=== PATIENT | female | born 1980 | race Caucasian/White ===

== ENCOUNTER → 2018-07-15 18:25 | Outpatient (CLI) | payer OTHER, SELFPAY ==
[2018-07-16 00:55] LABS: Urine N gonorrhoeae NOT DETECTED
[2018-07-16 00:56] LABS: Urine Chlamydia NOT DETECTED
== END ==
PROVIDERS: Visit Provider Physician Assistant
DX: N39.0 Urinary tract infection, site not specified (principal); R30.0 Dysuria
CPT/HCPCS: 87077; 87086; 87491; 87591

== ENCOUNTER 2018-11-02 23:57 | Emergency (ER) | payer OTHER, SELFPAY ==
[2018-11-03 00:03] VITALS: BP 124/74; PULSE 90; RESP 16; TEMP 36.8; O2SAT 100; BMI 25.1
--- NOTE | 2018-11-03 00:04 | ED.ABDPAIN ---
HPI - Abdominal Pain General Chief Complaint: Abdominal Pain Stated Complaint: LOWER ABDOMINAL PAIN Time Seen by Provider: 11/03/18 00:04 Source: patient Mode of arrival: ambulatory Limitations: no limitations History of Present Illness HPI narrative: Patient is a 38-year-old female here for evaluation of right-sided abdominal pain. Patient states that the symptoms were fairly sudden onset within the past couple hours. She denies any urinary symptoms or vaginal bleeding. No history of kidney stones. No vomiting. No prior abdominal surgeries. She states she is irregular on her menstrual cycle is supposed to start her menses next week. Has not tried anything for the symptoms prior to arrival. Nothing seems to make his symptoms better or worse. Related Data Home Medications Medication Instructions Recorded Confirmed cholecalciferol (vitamin D3) 5,000 unit PO QDAY #0 08/01/16 07/15/18 [Vitamin D3] dextroamphetamine-amphetamine 30 mg PO QDAY #0 08/01/16 07/15/18 [Adderall XR] omega 7-qyu-ldc-fish oil [Fish Oil] 1,000 mg PO #0 08/01/16 07/15/18 sertraline [Zoloft] 50 mg PO QDAY #0 08/01/16 07/15/18 cyanocobalamin (vitamin B-12) 5,000 mcg SUBLINGUAL QDAY #0 12/11/16 07/15/18 [Vitamin B-12] spironolactone [Aldactone] #0 08/01/17 07/15/18 Previous Rx's Medication Instructions Recorded mupirocin 2 % TOPICAL BIDP PRN #22 gm 08/01/17 gabapentin 300 mg capsule 600 mg PO TID #180 cap 10/19/17 Allergies Allergy/AdvReac Type Severity Reaction Status Date / Time mold [MOLD] Allergy Unknown Verified 07/15/18 17:59 DUST MITES Allergy Unknown Uncoded 07/15/18 17:59 POLLEN Allergy Unknown Uncoded 07/15/18 17:59 Review of Systems Constitutional Denies fever(s) and Denies headache(s) ENT Ears, Nose, Mouth, and Throat: Denies headache(s) Cardiovascular Denies chest pain and Denies dyspnea Respiratory Denies dyspnea Gastrointestinal Gastrointestinal: Reports abdominal pain and Denies change in stool character Genitourinary Denies dysuria Musculoskeletal Denies back pain, Denies myalgias and Denies arthralgias Integumentary/Breasts Denies rash Neurologic Denies headache(s) Hematologic/Lymphatic Denies easy bleeding and Denies easy bruising [facility] Medical History Patient denies medical problems (Acute) Surgical History No pertinent past surgical history (Acute) Social History Smoking Status: Former smoker Social History Smoking Status: Former smoker Exam Initial Vital Signs Initial Vital Signs: Vital Signs Temperature 98.2 F 11/03/18 00:03 Pulse Rate 90 11/03/18 00:03 Respiratory Rate 16 11/03/18 00:03 Blood Pressure 124/74 11/03/18 00:03 Pulse Oximetry 100 11/03/18 00:03 Const General: cooperative, comfortable, well developed and well groomed Orientation: alert and awake Resp Effort & Inspection: normal respiratory effort Auscultation: clear to auscultation bilaterally Cardio Rate: regular rate Rhythm: regular rhythm GI Inspection: non-distended Palpation: soft, No firm and tender (Right mid abdomen. No right lower quadrant or right upper quadrant tendern) Back/Spine/Pelvis Back: No CVA tenderness Neuro General: alert, awake and oriented x3 Cognition: normal cognition Speech: speech normal Extrem General: normal to inspection and capillary refill normal Course Orders Ordered: ED Orders 11/03/18 00:06 Urine Culture Stat Urine Microscopic Stat 11/03/18 00:10 CT abdomen pelvis w con Stat 11/03/18 00:15 Complete Blood Count AUTO DIFF Stat Comprehensive Metabolic Panel Stat Lipase Stat Discontinued Medications Hydrocodone Bitart/Acetaminophen (Vicodin Prepack) 1 bottle MISC SEEINSTR ONE Stop: 11/03/18 01:58 Sodium Chloride (Normal Saline 0.9%) 1,000 mls @ 1,000 mls/hr IV BOLUS ONE Stop: 11/03/18 01:08 Last Admin: 11/03/18 00:33 Dose: 1,000 mls/hr Morphine Sulfate (Morphine) 2 mg IV NOW ONE Stop: 11/03/18 01:27 Last Admin: 11/03/18 01:29 Dose: 2 mg Ondansetron HCl (Zofran) 4 mg IV NOW ONE Stop: 11/03/18 01:27 Last Admin: 11/03/18 01:29 Dose: 4 mg Ondansetron HCl (Zofran Odt Prepack) 1 bottle MISC SEEINSTR ONE Stop: 11/03/18 01:58 Vital Signs - 8 hr 11/03/18 00:03 11/03/18 01:16 11/03/18 01:33 Temperature 98.2 F Pulse Rate 90 65 67 Respiratory Rate 16 Blood Pressure 124/74 Blood Pressure [Left Arm] 104/67 110/65 Pulse Oximetry 100 100 100 MDM - Abdominal Pain Lab Data Attestation: I reviewed the patient's lab results. Result diagrams: 11/03/18 00:15 11/03/18 00:15 Lab Results 11/03/18 11/03/18 11/03/18 Range/Units 00:06 00:15 00:15 WBC 8.1 (4.5-11.0) X10^3/uL RBC 4.72 (4.0-5.2) X10^6/uL Hgb 14.8 (12.0-16.0) g/dL Hct 42.2 (36-46) % MCV 89.4 (80-100) fL MCH 31.4 (26-34) PG MCHC 35.1 (30-36) % RDW 12.8 (11.6-14.8) % Plt Count 263 (150-400) X10^3/uL Neut % (Auto) 52.1 (50-75) % Lymph % (Auto) 39.1 (25-40) % [place] % (Auto) 6.3 (3-14) % Eos % (Auto) 1.9 L (2-4) % Baso % (Auto) 0.6 (0-2) % Neut # (Auto) 4200 (5601-8203) /uL Lymph # (Auto) 3200 (1049-0602) /uL [place] # (Auto) 500 (0-900) /uL Eos # (Auto) 200 (0-450) /uL Baso # (Auto) 100 (0-100) /uL Sodium 138 (137-145) mmol/L Potassium 3.8 (3.4-5.1) mmol/L Chloride 102 (98-107) mmol/L Carbon Dioxide 25 (22-32) mmol/L BUN 11 (7-17) mg/dL Creatinine 0.60 (0.52-1.04) mg/dL Estimated GFR > 60.0 (>60) mL/min BUN/Creatinine Ratio 18.3 (6-22) Glucose 106 H (70-100) mg/dL Calcium 9.5 (8.4-10.2) mg/dL Total Bilirubin 0.5 (0.2-1.3) mg/dL AST 22 (14-36) IU/L ALT 23 (9-52) IU/L Alkaline Phosphatase 69 (38-126) U/L Total Protein 7.5 (6.3-8.2) g/dL Albumin 4.5 (3.5-5.0) g/dL Globulin 3.0 (1.7-4.1) g/dL Albumin/Globulin Ratio 1.5 (1.0-2.8) Lipase (23-300) U/L Urine RBC None seen (0-5/HPF) Urine WBC 0-1/hpf (0-5/HPF) Ur Squamous Epith Cells 1-5 /hpf (0-5/HPF) Urine Bacteria Few (2-10) H (None) Ur Culture Indicated? Specimen cultured 11/03/18 Range/Units 00:15 WBC (4.5-11.0) X10^3/uL RBC (4.0-5.2) X10^6/uL Hgb (12.0-16.0) g/dL Hct (36-46) % MCV (80-100) fL MCH (26-34) PG MCHC (30-36) % RDW (11.6-14.8) % Plt Count (150-400) X10^3/uL Neut % (Auto) (50-75) % Lymph % (Auto) (25-40) % [place] % (Auto) (3-14) % Eos % (Auto) (2-4) % Baso % (Auto) (0-2) % Neut # (Auto) (4160-8723) /uL Lymph # (Auto) (6077-1157) /uL [place] # (Auto) (0-900) /uL Eos # (Auto) (0-450) /uL Baso # (Auto) (0-100) /uL Sodium (137-145) mmol/L Potassium (3.4-5.1) mmol/L Chloride (98-107) mmol/L Carbon Dioxide (22-32) mmol/L BUN (7-17) mg/dL Creatinine (0.52-1.04) mg/dL Estimated GFR (>60) mL/min BUN/Creatinine Ratio (6-22) Glucose (70-100) mg/dL Calcium (8.4-10.2) mg/dL Total Bilirubin (0.2-1.3) mg/dL AST (14-36) IU/L ALT (9-52) IU/L Alkaline Phosphatase (38-126) U/L Total Protein (6.3-8.2) g/dL Albumin (3.5-5.0) g/dL Globulin (1.7-4.1) g/dL Albumin/Globulin Ratio (1.0-2.8) Lipase 62 (23-300) U/L Urine RBC (0-5/HPF) Urine WBC (0-5/HPF) Ur Squamous Epith Cells (0-5/HPF) Urine Bacteria (None) Ur Culture Indicated? Point of care testing: Point of Care Testing Test Results Negative Urine Dip Bedside Urine Glucose Negative Bedside Urine Bilirubin - Negative Bedside Urine Ketone - Negative Urine Specific Pimento 1.010 Bedside Urine Occult Blood - Negative Bedside Urine pH 5.0 Bedside Urine Protein - Negative Bedside Urine Urobilinogen - Negative Bedside Urine Nitrite - Negative Bedside Urine Leukocytes +/- [address] scan - abdomen: Radiologist's impression: No diverticulitis or bowel obstruction. Structure likely representing the appendix appears unremarkable. Collapsing follicle of the right ovary. Liver and gallbladder unremarkable. [facility] Narrative Medical decision making narrative: Patient is a relatively benign abdominal exam. The CT scan is negative for appendicitis or kidney stones or diverticulitis or bowel obstruction. Patient has normal LFTs and normal lipase and a CT scan specifically mentions the gallbladder has been unremarkable. Patient also does not have any right upper quadrant tenderness and does not have a positive Tom sign. Her symptoms are right mid abdomen. The CT scan does show what appears to be a collapsing follicle on the right ovary. This could potentially be causing her symptoms. I did discuss all this with the patient. No indication for antibiotics. Will hold on right upper quadrant ultrasound. No indication for surgical intervention. Will send home with prepack of pain medication and nausea medication. Patient was given return precautions and follow-up instructions. She expressed understanding and agreement with plan. Discharge Plan Departure Patient Disposition: Home Clinical Impression: Abdominal pain Qualifiers: Abdominal location: unspecified location Qualified Code(s): R10.9 - Unspecified abdominal pain Instructions: DI for Abdominal Pain-Adult Activity Restrictions/Additional Instructions: Use the medication you were given here during this visit as needed and as directed. Contact your primary care doctor to schedule your 1st visit with him and also for a follow-up. Return to the emergency department for any new or worsening symptoms Prescriptions: No Action cholecalciferol (vitamin D3) [Vitamin D3] 2,000 UNIT tablet 5,000 unit PO QDAY Qty: 0 RF: 0 omega 8-ujo-lre-fish oil [Fish Oil] 1,000 MG capsule 1,000 mg PO Qty: 0 RF: 0 dextroamphetamine-amphetamine [Adderall XR] 30 MG capsule,extended release 24hr 30 mg PO QDAY Qty: 0 RF: 0 sertraline [Zoloft] 50 MG tablet 50 mg PO QDAY Qty: 0 RF: 0 cyanocobalamin (vitamin B-12) [Vitamin B-12] 5,000 MCG tablet, sublingual 5,000 mcg Sublingual QDAY Qty: 0 RF: 0 spironolactone [Aldactone] 25 mg Tablet Qty: 0 RF: 0 mupirocin 2 % ointment 2 % Topical BIDP PRNQty: 22 RF: 0 gabapentin [Neurontin] 300 mg capsule 600 mg PO TID Qty: 180 RF: 11
--- NOTE | 2018-11-03 00:10 | DI.CT.S_ITS ---
PROCEDURE: CT ABDOMEN PELVIS W CON INDICATIONS: Right lower quadrant abdominal pain TECHNIQUE: After the administration of oral and intravenous contrast, 5 mm thick sections acquired from the diaphragms to the symphysis. 5 mm thick coronal and sagittal reformats were performed. For radiation dose reduction, the following was used: automated exposure control, adjustment of mA and/or kV according to patient size. COMPARISON: [facility], CT, ABDOMEN/PELVIS WITH CONTRAST, 06/25/2012, 19:15. FINDINGS: Image quality: Excellent. ABDOMEN: Lung bases: Lung bases are clear. Heart size is normal. Solid organs: Liver is normal in size and enhancement. Gallbladder is contracted, but appears to be within normal limits. Biliary system is non-dilated. Pancreas enhances normally. Spleen is normal in size and enhancement. No adrenal nodules. Kidneys are normal in size and enhancement, without hydronephrosis. Peritoneum and bowel: Stomach, small bowel, and colon loops are normal in caliber and wall thickness. Moderate residual stool is seen within the colon. No appendix is not clearly identified. However, what is felt to represent appendix is within normal limits. No free fluid or air. Nodes and vessels: No retroperitoneal or mesenteric adenopathy. Aorta and inferior vena cava are normal in caliber. Bones: No acute fractures or suspicious osseous lesions are present. There mild degenerative changes of the lower lumbar spine. PELVIS: Genitourinary: Bladder wall thickness is normal. The uterus is enlarged, but is not well characterized. There may be uterine fibroids. A collapsing/enhancing right ovarian cyst appears to be present. Otherwise, the ovaries are unremarkable and not significantly enlarged. Miscellaneous: No inguinal hernias or adenopathy. The no free fluid or loculated fluid collection is present. There is no free air. Bones: No suspicious bony lesions. No acute pelvic fractures are evident. IMPRESSION: 1. No definite acute abnormality of the abdomen or pelvis. 2. Probable collapsing right ovarian cyst. 3. Colonic constipation is suspected. And there is no bowel obstruction. 4. Probable normal appendix. 5. Enlarged uterus may be related to multiple uterine fibroids. Note: The preliminary [facility] report and the final report are concordant. Dictated by: Pravin Dickerson M.D. on 11/03/2018 at 7:34 Approved by: Pravin Dickerson M.D. on 11/03/2018 at 7:39
[2018-11-03 00:17] LABS: RBC Urine None Seen (0-5/HPF)
[2018-11-03 00:23] LABS: Squamous Epithelial Cell Urine 1-5 /HPF (0-5/HPF); WBC Urine 0-1/HPF (0-5/HPF)
[2018-11-03 00:24] LABS: Bacteria Urine Few (2-10); Culture Indicated Urine Specimen Cultured
[2018-11-03 00:32] LABS: Add Manual Diff / Slide Review NO; Basophils Absolute Auto 100 /uL (0-100); Basophils Percent Auto 0.6 % (0-2); Eosinophils Absolute Auto 200 /uL (0-450); Eosinophils Percent Auto 1.9 % (2-4); Hematocrit 42.2 % (36-46); Hemoglobin 14.8 g/dL (12.0-16.0); Lymphocytes Absolute Auto 3200 /uL (1100-4500); Lymphocytes Percent Auto 39.1 % (25-40); Mean Corpuscular HGB Conc 35.1 % (30-36); Mean Corpuscular Hemoglobin 31.4 PG (26-34); Mean Corpuscular Volume 89.4 fL (80-100); Monocytes Absolute Auto 500 /uL (0-900); Monocytes Percent Auto 6.3 % (3-14); Neutrophils Absolute Auto 4200 /uL (1500-7000); Neutrophils Percent Auto 52.1 % (50-75); Platelet Count 263 X10^3/uL (150-400); Red Blood Cell Count 4.72 X10^6/uL (4.0-5.2); Red Cell Distribution Width 12.8 % (11.6-14.8); White Blood Cell Count 8.1 X10^3/uL (4.5-11.0)
[2018-11-03] MEDS: SODIUM CHLORIDE 0.9% 1,000 ML 1000 ML IV (00:33)
[2018-11-03 00:39] LABS: Lipase 62 U/L (23-300)
[2018-11-03 00:41] LABS: Alanine Aminotransferase 23 IU/L (9-52); Albumin 4.5 g/dL (3.5-5.0); Albumin Globulin Ratio 1.5 (1.0-2.8); Alkaline Phosphatase 69 U/L (38-126); Aspartate Aminotransferase 22 IU/L (14-36); BUN Creatinine Ratio 18.3 (6-22); Bilirubin Total 0.5 mg/dL (0.2-1.3); Blood Urea Nitrogen 11 mg/dL (7-17); Calcium 9.5 mg/dL (8.4-10.2); Carbon Dioxide 25 mmol/L (22-32); Chloride 102 mmol/L (98-107); Estimated Glomerular Filt Rate > 60.0 mL/min (>60); Glucose 106 mg/dL (70-100); HEMOLYSIS 17 (0-50); Potassium 3.8 mmol/L (3.4-5.1); Sodium 138 mmol/L (137-145); Total Protein 7.5 g/dL (6.3-8.2)
[2018-11-03 01:16] VITALS: BP 104/67; PULSE 65; O2SAT 100
[2018-11-03] MEDS: MORPHINE 2 MG/ML INJ IV (01:29)
[2018-11-03] MEDS: ONDANSETRON 4 MG/2 ML INJ IV (01:29)
[2018-11-03 01:33] VITALS: BP 110/65; PULSE 67; O2SAT 100
[2018-11-03 02:27] VITALS: BP 116/66; PULSE 61; RESP 14; O2SAT 100
[2018-11-03] MEDS: HYDROCODONE/ACET 5/325 PREPACK 1 BOTTLE MISC (02:28)
[2018-11-03] MEDS: ONDANSETRON 4 MG ODT PREPACK 1 BOTTLE MISC (02:28)
[2018-11-03 02:40] VITALS: TEMP 36.5
== END 2018-11-03 02:40 | disposition home or self-care (01) ==
PROVIDERS: Emergency Provider Emergency Medicine
DX: R10.31 Right lower quadrant pain (principal)
CPT/HCPCS: 36591; 74177; 80053; 81003; 81015; 81025; 83690; 85025; 87077; 87086; 87186; 96361; 96374; 96375; 99283; 99285; J2270; J2405; Q9967

== ENCOUNTER 2019-01-01 22:52 | Emergency (ER) | payer OTHER, SELFPAY ==
[2019-01-01 22:56] VITALS: BP 119/76; PULSE 60; RESP 14; TEMP 36.9; O2SAT 97
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
[2019-01-02 00:02] VITALS: BP 112/60; PULSE 62; O2SAT 100
== END 2019-01-02 00:02 | disposition home or self-care (01) ==
PROVIDERS: Emergency Provider Emergency Medicine; PCP Family Medicine
DX: R07.81 Pleurodynia (principal); S40.011A Contusion of right shoulder, initial encounter; V58.6XXA Passenger in pick-up truck or van injured in noncollision transport accident in traffic accident, initial encounter
CPT/HCPCS: 71101; 99281; 99283

== ENCOUNTER 2019-07-20 12:38 | Emergency (ER) | payer OTHER, MEDICAID, SELFPAY ==
[2019-07-20 12:58] VITALS: BP 128/83; PULSE 92; RESP 18; TEMP 37.1; O2SAT 97
[2019-07-20] MEDS: IBUPROFEN 400 MG TABLET PO (13:11)
[2019-07-20] MEDS: PROPRANOLOL 10 MG TABLET 20 MG PO (13:48)
--- NOTE | 2019-07-20 13:54 | ED.ANXIETY ---
HPI - Anxiety General Chief Complaint: Anxiety Stated Complaint: PANIC ATTACK REALLY BAD Time Seen by Provider: 07/20/19 13:48 Source: patient Mode of arrival: Ambulatory Limitations: no limitations History of Present Illness HPI narrative: 39-year-old female. History of anxiety depression and ADHD. Sees a mental health provider. Is on medications for these diagnoses. Here for evaluation of a panic attack. Has been going on for the past 2 days. States that 1 month ago her mother . Her boyfriend of 1 year also recently ended the relationship. She denies any alcohol or drugs. States she has been crying and lying on the floor for the past 2 days. She states that she just can't take it anymore. She did not take any of her medications today. She also has abdominal pain. She has had chronic abdominal pain. She states that today's abdominal pain is like prior abdominal issues. She is having some diarrhea although she states that she does have some irritable bowel syndrome type symptoms. She has never been worked up before by GI. Related Data Home Medications Medication Instructions Recorded Confirmed cholecalciferol (vitamin D3) 5,000 unit PO QDAY #0 08/01/16 07/20/19 [Vitamin D3] dextroamphetamine-amphetamine 30 mg PO QDAY #0 08/01/16 07/20/19 [Adderall XR] omega 0-xqf-til-fish oil [Fish Oil] 1,000 mg PO DAILY #0 08/01/16 07/20/19 cyanocobalamin (vitamin B-12) 5,000 mcg SUBLINGUAL QDAY #0 12/11/16 07/20/19 [Vitamin B-12] bupropion HCl 150 mg 24 hr tablet, 300 mg PO QAM 11/25/18 07/20/19 extended release clonidine HCl 0.2 mg tablet 0.2 mg PO BEDTIME 11/25/18 07/20/19 propranolol 20 mg PO BID PRN 07/20/19 07/20/19 sertraline 150 mg PO BEDTIME 07/20/19 07/20/19 Previous Rx's Medication Instructions Recorded gabapentin 300 mg capsule 600 mg PO TID #180 cap 07/03/19 lorazepam [Ativan] 1 mg PO TID PRN #10 tab 07/20/19 Allergies Allergy/AdvReac Type Severity Reaction Status Date / Time mold [MOLD] Allergy Unknown Verified 11/25/18 16:00 DUST MITES Allergy Unknown Uncoded 11/25/18 16:00 POLLEN Allergy Unknown Uncoded 11/25/18 16:00 Review of Systems Constitutional Constitutional: Denies fever(s) Cardiovascular Cardiovascular: Denies chest pain and Denies dyspnea Respiratory Respiratory: Denies dyspnea Gastrointestinal Gastrointestinal: Reports abdominal pain, Denies change in stool character, Denies nausea and Denies vomiting Genitourinary Genitourinary: Denies dysuria Musculoskeletal Musculoskeletal: Denies myalgias and Denies arthralgias Integumentary/Breasts Skin/Breast: Denies lesions and Denies rash Neurologic Neurologic: Denies behavioral changes Psychiatric Psychiatric: Denies behavioral changes Hematologic/Lymphatic Hematologic/Lymphatic: Denies easy bleeding and Denies easy bruising Patient History Medical History Patient denies medical problems (Acute) Surgical History No pertinent past surgical history (Acute) Social History Smoking Status: Former smoker Smoking Status: Former smoker alcohol intake frequency: a few times a month Substance Use Type: marijuana Exam Initial Vital Signs Initial Vital Signs: Vital Signs Temperature 98.7 F 07/20/19 12:58 Pulse Rate 92 H 07/20/19 12:58 Respiratory Rate 18 07/20/19 12:58 Blood Pressure 128/83 07/20/19 12:58 Pulse Oximetry 97 07/20/19 12:58 Const General: cooperative and comfortable Limitations: mental status not altered [facility] Head: normal to inspection and normocephalic Resp Effort & Inspection: normal respiratory effort Auscultation: clear to auscultation bilaterally Cardio Rate: regular rate Rhythm: regular rhythm GI Inspection: non-distended Palpation: soft, No firm and No tender Skin Lesions: no lesions Rashes: no rashes Neuro General: alert, awake and oriented x3 Cognition: normal cognition Speech: speech normal Gait: normal gait Motor: muscle tone normal throughout Extrem General: normal to inspection and capillary refill normal Psych Appearance: grossly normal and well kempt Course Orders Ordered: ED Orders 07/20/19 14:02 Consult to MONEY MARKET DEALER - Shoe Salesperson Stat Discontinued Medications Al Hydrox/Mg Hydrox/Simethicone 20 ml/ Lidocaine HCl 15 ml 0 ml PO NOW ONE Stop: 07/20/19 14:49 Last Admin: 07/20/19 14:57 Dose: 35 ml Documented by: SHAD Ibuprofen (Advil) 400 mg PO NOW ONE Stop: 07/20/19 13:08 Last Admin: 07/20/19 13:11 Dose: 400 mg Documented by: SHAD Lorazepam (Ativan) 1 mg PO NOW ONE Stop: 07/20/19 14:02 Last Admin: 07/20/19 14:16 Dose: 1 mg Documented by: SHAD Propranolol HCl (Inderal) 20 mg PO NOW ONE Stop: 07/20/19 13:08 Last Admin: 07/20/19 13:48 Dose: 20 mg Documented by: SHAD Vital Signs Vital signs: Vital Signs - 8 hr 07/20/19 12:58 07/20/19 15:43 Temperature 98.7 F Pulse Rate 92 H 68 Respiratory Rate 18 12 Blood Pressure 128/83 Blood Pressure [Left Arm] 122/78 Pulse Oximetry 97 98 MDM - Anxiety MDM Narrative Medical decision making narrative: Patient not suicidal homicidal her abdominal exam is benign. States that her abdominal pain is not new today. She was given Ativan. Was evaluated by social Work. Patient not looking for inpatient admission. She was given resources. She has a local psychiatrist. She will contact them tomorrow for follow-up. She was given return precautions and follow-up instructions. She expressed understanding and agreement with plan. Discharge Plan Departure Patient Disposition: Home Clinical Impression: Anxiety Discharge Date/Time: 07/20/19 15:44 Instructions: Anxiety Disorders Activity Restrictions/Additional Instructions: Recommend that tomorrow you contact your psychiatrist for a follow-up. Take the medication as directed. Return to the emergency department for any new or worsening symptoms Prescriptions: New lorazepam [Ativan] 1 mg tablet 1 mg PO TID PRN (Reason: anxiety) Qty: 10 RF: 0 No Action cholecalciferol (vitamin D3) [Vitamin D3] 2,000 UNIT tablet 5,000 unit PO QDAY Qty: 0 RF: 0 omega 0-nma-ocd-fish oil [Fish Oil] 1,000 MG capsule 1,000 mg PO DAILY Qty: 0 RF: 0 dextroamphetamine-amphetamine [Adderall XR] 30 MG capsule,extended release 24hr 30 mg PO QDAY Qty: 0 RF: 0 cyanocobalamin (vitamin B-12) [Vitamin B-12] 5,000 MCG tablet, sublingual 5,000 mcg Sublingual QDAY Qty: 0 RF: 0 gabapentin [Neurontin] 300 mg capsule 600 mg PO TID Qty: 180 RF: 5 clonidine HCl 0.2 mg tablet 0.2 mg PO BEDTIME RF: 0 bupropion HCl 150 mg tablet extended release 24 hr 300 mg PO QAM RF: 0 propranolol 20 mg tablet 20 mg PO BID PRN (Reason: anxiety/panic) RF: 0 sertraline 50 mg tablet 150 mg PO BEDTIME RF: 0 Referrals: Mindy Barrera DO [Primary Care Provider] -
[2019-07-20] MEDS: LORazepam 0.5 MG TABLET 1 MG PO (14:16)
[2019-07-20] MEDS: MAG HYDROX/ALUMINUM/SIMETH SUS 20 ML, LIDOCAINE VISCOUS 2% 15 ML PO (14:57)
[2019-07-20 15:43] VITALS: BP 122/78; PULSE 68; RESP 12; O2SAT 98
--- NOTE | 2019-07-21 12:20 | CM.SWNOTE ---
Patient is a 39 year old female who was admitted to [facility] ED on 07/20/19 for Panic Attack. EKG MONITOR consult ordered due to pt's anxiety and depression. EKG MONITOR completed below assessment and pt was able to safety plan for least restrictive plan of returning to the community with next day appointment with established Psychiatrist and increased counseling from once a month to likely once a week. MD to discuss possible medication relief for pt overnight until she can talk with her Psychiatrist for med management in the morning. EKG MONITOR updated RN and MD and feels pt can safely d/c to the community with outpt providers and information to access crisis services if needed or return to ED. PADDY [place]ell Discharge Planning/Care Management EKG MONITOR - Flight Engineer Instructor Assessment Start: 07/21/19 07:45 Freq: Status: Active Protocol: Document 07/21/19 07:45 BF (Rec: 07/21/19 07:56 BF [id number]) EKG MONITOR/Flight Engineer Instructor Assessment Start date 07/20/19 Visit Start Time 15:00 End date 07/20/19 Visit End Time 16:00 Total time Care Management spent on 60 patient visit-in minutes Presenting Problem Pt states that she has been having anxiety/panic attacks to the point where she has been lying on the floor crying and not able to function for about 2 days. Precipitating Event(s) Pt states she has a hx of spouse dying 6 years ago and recently her mother passed unexpectedly aboout a month ago and her boyfriend broke up with her 2 days ago. Current Behavioral Health Provider(s) Pt is established with Include Facility, Provider, Ph. # Psychiatrist Dr. Douglas in [place] for med managment and some therapy once a month Psych. Hx Mental Health and Chemical Pt denies chemical dependency Dependency issues but has a hx of one Inpt MH tx placement when she was a teenager for suicidal ideation but no inpt tx since. Support System(s) Pt is accompanied by her close friend today and they discussed a good support system of friends locally and pt's sister is supportive and lives in [place] and available by phone readily Orientation (Person/Place/Time) A&O x3 Affect somewhat tearful at times but appears calm although she attributes this to the Ativan given in the ED Thought Content - Specify/Describe Denies any visual or auditory Obsessions, Delusions, Hallucinations hallucinations or delusions. States she is having ongoing thoughts about the break up with her boyfriend and not having closure Thought Processes (Cydzlgt-Krqtyrrq-Qhbf Logical and coherent, able to Rgfgpogg-Mvmespcj-Gekmvlpljk- participate in goal directed Iyexmxdaetwkfs-Heyrhtb-Umawzpawylnb- discussion. Thought Blocking) Speech (Kudcxn-Ayry-Qaopfyb-Rapid-Soft- Normal, soft, not pressured Loud-Pressured) Motor (Mmpinp-Aqcoglaik-Tlku-Other) Normal Insight (Present-Partially Present- Insight is present, does not Impaired) appear impaired and judgement is intact Impulse Control (Adequate-Impaired) Adequate Memory (Pcaxdypro-Oijttp-Kybpan, Memory appears to be immediate Impaired-Intact) with no negative impact to recalling events or details Attention (Intact-Impaired) Attention is intact Behavior (Appropriate-Inappropriate) Behavior is appropriate for the events and discriptions that pt is providing Suicidal Ideation (Plan) No: Denies Homicidal Ideation (Plan) No Intervention EKG MONITOR met in the ED with pt and her supportive friend and pt was able to identify triggering events and supports in her life that could help her to maintain safely in the community. EKG MONITOR explained options of Inpt Voluntary MH tx, Crisis Stabilization at [facility], [facility]/ [facility] support in the community for safety planning. Pt and friend feel that they can create a safety plan for pt to return home with her young adult and older teenage children and group of friends to stay and check in with pt and have the [facility]IT/Crisis Line number to call if needed after d/c. Pt denies any suicidal ideation or plan and she states she plans to call her Psychiatrist in the morning ( who she has been established with for 6 years) and have an immergent appointment. RA Plan Pt plans to go back home with her supportive friend and next day appointment with her Psychiatrist and already had plans to see a therapist at his office weekly for additional supports since her mom . EKG MONITOR gave information on grief support groups, [facility] Crisis Line, Respite if needed after d/c.
== END 2019-07-20 15:44 | disposition home or self-care (01) ==
PROVIDERS: Emergency Provider Emergency Medicine; PCP Family Medicine
DX: F41.9 Anxiety disorder, unspecified (principal)
CPT/HCPCS: 99283

== ENCOUNTER 2019-07-22 13:53 | Emergency (ER) | payer OTHER, MEDICAID, SELFPAY ==
[2019-07-22 14:11] VITALS: BP 110/73; PULSE 67; RESP 16; TEMP 36.5; O2SAT 96; BMI 27.3
[2019-07-22 14:39] LABS: Add Manual Diff / Slide Review NO; Basophils Absolute Auto 0 /uL (0-100); Basophils Percent Auto 0.5 % (0-2); Eosinophils Absolute Auto 100 /uL (0-450); Eosinophils Percent Auto 0.7 % (2-4); Hematocrit 42.5 % (36-46); Lymphocytes Absolute Auto 1700 /uL (1100-4500); Lymphocytes Percent Auto 19.3 % (25-40); Mean Corpuscular HGB Conc 35.3 % (30-36); Mean Corpuscular Hemoglobin 31.6 PG (26-34); Mean Corpuscular Volume 89.4 fL (80-100); Monocytes Absolute Auto 400 /uL (0-900); Monocytes Percent Auto 4.6 % (3-14); Neutrophils Absolute Auto 6600 /uL (1500-7000); Neutrophils Percent Auto 74.9 % (50-75); Platelet Count 262 X10^3/uL (150-400); Red Blood Cell Count 4.75 X10^6/uL (4.0-5.2); Red Cell Distribution Width 12.9 % (11.6-14.8); White Blood Cell Count 8.7 X10^3/uL (4.5-11.0)
[2019-07-22 14:51] LABS: Acetaminophen < 10 ug/mL (10-30); Alanine Aminotransferase 15 IU/L (<35); Albumin 4.6 g/dL (3.5-5.0); Albumin Globulin Ratio 1.4 (1.0-2.8); Alkaline Phosphatase 74 U/L (38-126); Aspartate Aminotransferase 23 IU/L (14-36); BUN Creatinine Ratio 18.6 (6-22); Bilirubin Total 0.5 mg/dL (0.2-1.3); Blood Urea Nitrogen 13 mg/dL (7-17); Calcium 9.3 mg/dL (8.4-10.2); Carbon Dioxide 25 mmol/L (22-32); Chloride 104 mmol/L (98-107); Estimated Glomerular Filt Rate > 60.0 mL/min (>60); Ethanol (ETOH) < 10 mg/dL; Globulin 3.3 g/dL (1.7-4.1); Glucose 102 mg/dL (70-100); HEMOLYSIS < 15 (0-50); Potassium 4.1 mmol/L (3.4-5.1); Salicylate < 1.0 mg/dL (<20); Sodium 140 mmol/L (137-145); Total Protein 7.9 g/dL (6.3-8.2)
--- NOTE | 2019-07-22 14:54 | ED_ITS ---
HPI - Psych General Chief Complaint: Psychiatric Symptoms Stated Complaint: WORSENING PANIC ATTACKS Time Seen by Provider: 07/22/19 14:47 Source: patient Mode of arrival: Ambulatory Limitations: no limitations History of Present Illness HPI Narrative: 39-year-old female who evaluated the emergency department 2 days ago for anxiety returns today for worsening anxiety. She states that she has been taking the Ativan and has been helping somewhat but she states that she feels like she should not be taking it. Her inciting factors are the same. Her mother dying 1 month ago and a recent break-up of a long-term relationship. Denies any alcohol or drug use. Here because she states that she can't take it anymore. Related Data Home Medications Medication Instructions Recorded Confirmed cholecalciferol (vitamin D3) 5,000 unit PO QPM #0 08/01/16 07/22/19 [Vitamin D3] omega 1-tbs-tsn-fish oil [Fish Oil] 1,000 mg PO QPM #0 08/01/16 07/22/19 cyanocobalamin (vitamin B-12) 5,000 mcg SUBLINGUAL QPM #0 12/11/16 07/22/19 [Vitamin B-12] bupropion HCl 150 mg 24 hr tablet, 150 mg PO QAM 11/25/18 07/22/19 extended release clonidine HCl 0.2 mg tablet 0.2 mg PO BEDTIME 11/25/18 07/22/19 propranolol 20 mg PO BID PRN 07/20/19 07/22/19 sertraline 150 mg PO BEDTIME 07/20/19 07/22/19 dextroamphetamine-amphetamine 20 mg PO BID 07/22/19 07/22/19 Previous Rx's Medication Instructions Recorded gabapentin 300 mg capsule 600 mg PO TID #180 cap 07/03/19 lorazepam [Ativan] 1 mg PO TID PRN #10 tab 07/20/19 Allergies Allergy/AdvReac Type Severity Reaction Status Date / Time mold [MOLD] Allergy Unknown Verified 07/22/19 14:15 DUST MITES Allergy Unknown Uncoded 07/22/19 14:15 POLLEN Allergy Unknown Uncoded 07/22/19 14:15 Review of Systems Constitutional Constitutional: Denies fever(s) and Denies headache(s) ENT Ears, Nose, Mouth, and Throat: Denies headache(s) Cardiovascular Cardiovascular: Denies chest pain and Denies dyspnea Respiratory Respiratory: Denies dyspnea Gastrointestinal Gastrointestinal: Denies abdominal pain Musculoskeletal Musculoskeletal: Denies myalgias and Denies arthralgias Integumentary/Breasts Skin/Breast: Denies rash Neurologic Neurologic: Reports behavioral changes and Denies headache(s) Psychiatric Psychiatric: Reports anxiety, Reports behavioral changes, Reports depression, Reports hopelessness, Reports panic attacks and Denies suicidal ideation Allergic/Immunologic Allergic/Immunologic: Denies urticaria Patient History Medical History Patient denies medical problems (Acute) Surgical History No pertinent past surgical history (Acute) Social History Smoking Status: Former smoker Smoking Status: Former smoker alcohol intake frequency: a few times a month Substance Use Type: marijuana Exam Initial Vital Signs Initial Vital Signs: Vital Signs Temperature 97.7 F 07/22/19 14:11 Pulse Rate 67 07/22/19 14:11 Respiratory Rate 16 07/22/19 14:11 Blood Pressure 110/73 07/22/19 14:11 Pulse Oximetry 96 07/22/19 14:11 Const General: cooperative, comfortable and well developed Limitations: mental status not altered HENMT Head: normal to inspection and normocephalic Resp Effort & Inspection: normal respiratory effort Cardio Rate: regular rate Skin Lesions: no lesions Rashes: no rashes Neuro General: alert and awake Cognition: normal cognition Speech: speech normal Extrem General: normal to inspection and capillary refill normal Scores GCS [place] coma scale eye opening: Spontaneous Rafaela coma scale verbal response: Orientated [place] coma scale motor response: Obey commands Rafaela coma scale total score: 15 Course Orders Ordered: ED Orders 07/22/19 14:17 Consult to INTERIOR SURFACE INSULATION WORKER - Shop Technician Stat 07/22/19 14:30 Acetaminophen Stat Complete Blood Count AUTO DIFF Stat Comprehensive Metabolic Panel Stat Ethanol (ETOH) Stat Free T4, Direct Thyroxine Stat Salicylate Stat Thyroid Stimulating Hormone Stat 07/22/19 15:18 Test Urine Stat Urinalysis and Microscopic Stat Urine Drug Screen, Rapid Stat Discontinued Medications Ibuprofen (Advil) 800 mg PO NOW ONE Stop: 07/22/19 15:13 Last Admin: 07/22/19 15:15 Dose: 800 mg Documented by: AKINNEY Lorazepam (Ativan) 1 mg PO NOW ONE Stop: 07/22/19 16:41 Last Admin: 07/22/19 17:06 Dose: Not Given Documented by: MIN Vital Signs Vital signs: Vital Signs - 8 hr 07/22/19 14:11 Temperature 97.7 F Pulse Rate 67 Respiratory Rate 16 Blood Pressure 110/73 Pulse Oximetry 96 MDM - Psych Lab Data Attestation: I reviewed the patient's lab results. Result diagrams: 07/22/19 14:30 07/22/19 14:30 Labs: Lab Results 07/22/19 07/22/19 07/22/19 Range/Units 14:30 14:30 14:30 WBC 8.7 (4.5-11.0) X10^3/uL RBC 4.75 (4.0-5.2) X10^6/uL Hgb 15.0 (12.0-16.0) g/dL Hct 42.5 (36-46) % MCV 89.4 (80-100) fL MCH 31.6 (26-34) PG MCHC 35.3 (30-36) % RDW 12.9 (11.6-14.8) % Plt Count 262 (150-400) X10^3/uL Neut % (Auto) 74.9 (50-75) % Lymph % (Auto) 19.3 L (25-40) % [place] % (Auto) 4.6 (3-14) % Eos % (Auto) 0.7 L (2-4) % Baso % (Auto) 0.5 (0-2) % Neut # (Auto) 6600 (1129-6839) /uL Lymph # (Auto) 1700 (5681-4360) /uL [place] # (Auto) 400 (0-900) /uL Eos # (Auto) 100 (0-450) /uL Baso # (Auto) 0 (0-100) /uL Sodium 140 (137-145) mmol/L Potassium 4.1 (3.4-5.1) mmol/L Chloride 104 (98-107) mmol/L Carbon Dioxide 25 (22-32) mmol/L BUN 13 (7-17) mg/dL Creatinine 0.70 (0.52-1.04) mg/dL Estimated GFR > 60.0 (>60) mL/min BUN/Creatinine Ratio 18.6 (6-22) Glucose 102 H (70-100) mg/dL Calcium 9.3 (8.4-10.2) mg/dL Total Bilirubin 0.5 (0.2-1.3) mg/dL AST 23 (14-36) IU/L ALT 15 (<35) IU/L Alkaline Phosphatase 74 (38-126) U/L Total Protein 7.9 (6.3-8.2) g/dL Albumin 4.6 (3.5-5.0) g/dL Globulin 3.3 (1.7-4.1) g/dL Albumin/Globulin Ratio 1.4 (1.0-2.8) TSH 0.85 (0.47-4.68) uIU/mL Free T4 1.27 (0.78-2.19) ng/dL Urine Color Urine Appearance Urine pH (4.5-8.0) Ur Specific [place] (1.000-1.035) Urine Protein (Negative) Urine Glucose (UA) (Negative) g/dL Urine Ketones (NEGATIVE) Urine Occult Blood (Negative) Urine Nitrate (Negative) Urine Bilirubin (NEGATIVE) Urine Urobilinogen (0.2) E.U./dL Ur Leukocyte Esterase (NEGATIVE) Urine RBC (0-5/HPF) Urine WBC (0-5/HPF) Ur Squamous Epith Cells (0-5/HPF) Urine Bacteria (None) Ur Culture Indicated? Urine Test (Negative) Salicylates < 1.0 (<20) mg/dL U Opiates 300ng/mL cut (Negative) Ur Oxycodone Screen (Negative) Urine Methadone Screen (Negative) Acetaminophen < 10 L (10-30) ug/mL Ur Barbiturates Screen (Negative) U Tricyclic Antidepress (Negative) Ur Phencyclidine Scrn (Negative) Ur Amphetamines Screen (Negative) U Methamphetamines Scrn (Negative) Ur MDMA Scrn (Ecstasy) (Negative) U Benzodiazepines Scrn (Negative) Urine Cocaine Screen (Negative) U Marijuana (THC) Screen (Negative) Ethyl Alcohol < 10 ( - 10) mg/dL 07/22/19 07/22/19 07/22/19 Range/Units 15:18 15:18 15:18 WBC (4.5-11.0) X10^3/uL RBC (4.0-5.2) X10^6/uL Hgb (12.0-16.0) g/dL Hct (36-46) % MCV (80-100) fL MCH (26-34) PG MCHC (30-36) % RDW (11.6-14.8) % Plt Count (150-400) X10^3/uL Neut % (Auto) (50-75) % Lymph % (Auto) (25-40) % [place] % (Auto) (3-14) % Eos % (Auto) (2-4) % Baso % (Auto) (0-2) % Neut # (Auto) (1824-9372) /uL Lymph # (Auto) (8445-8658) /uL [place] # (Auto) (0-900) /uL Eos # (Auto) (0-450) /uL Baso # (Auto) (0-100) /uL Sodium (137-145) mmol/L Potassium (3.4-5.1) mmol/L Chloride (98-107) mmol/L Carbon Dioxide (22-32) mmol/L BUN (7-17) mg/dL Creatinine (0.52-1.04) mg/dL Estimated GFR (>60) mL/min BUN/Creatinine Ratio (6-22) Glucose (70-100) mg/dL Calcium (8.4-10.2) mg/dL Total Bilirubin (0.2-1.3) mg/dL AST (14-36) IU/L ALT (<35) IU/L Alkaline Phosphatase (38-126) U/L Total Protein (6.3-8.2) g/dL Albumin (3.5-5.0) g/dL Globulin (1.7-4.1) g/dL Albumin/Globulin Ratio (1.0-2.8) TSH (0.47-4.68) uIU/mL Free T4 (0.78-2.19) ng/dL Urine Color Yellow Urine Appearance Sl cloudy Urine pH 5.5 (4.5-8.0) Ur Specific [place] 1.025 (1.000-1.035) Urine Protein 1+ H (Negative) Urine Glucose (UA) Negative (Negative) g/dL Urine Ketones Negative (NEGATIVE) Urine Occult Blood 3+ H (Negative) Urine Nitrate Positive (Negative) Urine Bilirubin Negative (NEGATIVE) Urine Urobilinogen 0.2 (0.2) E.U./dL Ur Leukocyte Esterase 2+ H (NEGATIVE) Urine RBC 0-1/hpf (0-5/HPF) Urine WBC 10-30/hpf H (0-5/HPF) Ur Squamous Epith Cells 5-10 /hpf H (0-5/HPF) Urine Bacteria Many (>30) H (None) Ur Culture Indicated? Cult not indicated Urine Test Negative (Negative) Salicylates (<20) mg/dL U Opiates 300ng/mL cut Negative (Negative) Ur Oxycodone Screen Negative (Negative) Urine Methadone Screen Negative (Negative) Acetaminophen (10-30) ug/mL Ur Barbiturates Screen Negative (Negative) U Tricyclic Antidepress Negative (Negative) Ur Phencyclidine Scrn Negative (Negative) Ur Amphetamines Screen Negative (Negative) U Methamphetamines Scrn Negative (Negative) Ur MDMA Scrn (Ecstasy) Negative (Negative) U Benzodiazepines Scrn Positive H (Negative) Urine Cocaine Screen Negative (Negative) U Marijuana (THC) Screen Negative (Negative) Ethyl Alcohol ( - 10) mg/dL MDM Narrative Medical decision making narrative: I did discuss the case with the patient's mental health provider who stated that they do have an appointment available on . The patient called their office and did schedule this appointment. She was not clinically intoxicated. I did GCS of 15. Stated that she was hav ing strong menstrual cramps. She was given ibuprofen. She asked for something stronger. I informed her that we could give her Tylenol which she declined. Patient was asking to go home. She does not desire admission patient will follow-up on . Discharge Plan Departure Patient Disposition: Home Clinical Impression: Anxiety Discharge Date/Time: 07/22/19 17:07 Activity Restrictions/Additional Instructions: Keep your appointment that you scheduled today with your mental health provider on . Continue all of your medications as directed. Prescriptions: No Action cholecalciferol (vitamin D3) [Vitamin D3] 2,000 UNIT tablet 5,000 unit PO QPM Qty: 0 RF: 0 omega 6-iba-igq-fish oil [Fish Oil] 1,000 MG capsule 1,000 mg PO QPM Qty: 0 RF: 0 cyanocobalamin (vitamin B-12) [Vitamin B-12] 5,000 MCG tablet, sublingual 5,000 mcg Sublingual QPM Qty: 0 RF: 0 gabapentin [Neurontin] 300 mg capsule 600 mg PO TID Qty: 180 RF: 5 clonidine HCl 0.2 mg tablet 0.2 mg PO BEDTIME RF: 0 bupropion HCl 150 mg tablet extended release 24 hr 150 mg PO QAM RF: 0 propranolol 20 mg tablet 20 mg PO BID PRN (Reason: anxiety/panic) RF: 0 sertraline 50 mg tablet 150 mg PO BEDTIME RF: 0 lorazepam [Ativan] 1 mg tablet 1 mg PO TID PRN (Reason: anxiety) Qty: 10 RF: 0 dextroamphetamine-amphetamine 20 mg capsule,extended release 24hr 20 mg PO BID RF: 0 Referrals: Mindy Barrera DO [Primary Care Provider] -
[2019-07-22] MEDS: IBUPROFEN 400 MG TABLET 800 MG PO (15:15)
[2019-07-22 15:23] LABS: Free T4, Direct Thyroxine 1.27 ng/dL (0.78-2.19)
[2019-07-22 15:33] LABS: Appearance Urine UA SL CLOUDY; Bilirubin Urine UA NEGATIVE (NEGATIVE); Color Urine UA YELLOW; Glucose Urine UA NEGATIVE (Negative); Ketones Urine UA NEGATIVE (NEGATIVE); Leukocyte Esterase Urine UA 2+ (NEGATIVE); Nitrite Urine UA POSITIVE (Negative); Occult Blood Urine UA 3+ (Negative); Protein Urine UA 1+ (Negative); Specific Gravity Urine UA 1.025 (1.000-1.035); Urobilinogen Urine UA 0.2 E.U./dL (0.2)
[2019-07-22 15:34] LABS: pH Urine UA 5.5 (4.5-8.0)
[2019-07-22 15:37] LABS: Thyroid Stimulating Hormone 0.85 uIU/mL (0.47-4.68)
[2019-07-22 15:37] LABS: Pregnancy Test Urine Negative (Negative)
[2019-07-22 15:48] LABS: UR Morphine/Opiate cutoff 300 Negative (Negative); Ur Creatinine Normal (Normal); Ur Specific Gravity Normal (Normal); Urine Amphetamines Negative (Negative); Urine Barbiturates Negative (Negative); Urine Benzodiazepines Positive (Negative); Urine Cocaine Negative (Negative); Urine MDMA Negative (Negative); Urine Methadone Negative (Negative); Urine Methamphetamines Negative (Negative); Urine Oxycodone Negative (Negative); Urine Phencyclidine Negative (Negative); Urine Tetrahydrocannabinol Negative (Negative); Urine Tricyclic Antidepressant Negative (Negative); Urine pH Normal (Normal)
[2019-07-22 15:55] LABS: Bacteria Urine Many (>30); Culture Indicated Urine Cult Not Indicated; RBC Urine 0-1/HPF (0-5/HPF); Squamous Epithelial Cell Urine 5-10 /HPF (0-5/HPF); WBC Urine 10-30/HPF (0-5/HPF)
== END 2019-07-22 17:07 | disposition home or self-care (01) ==
PROVIDERS: Emergency Provider Emergency Medicine; PCP Family Medicine
DX: F41.9 Anxiety disorder, unspecified (principal); F32.9 Major depressive disorder, single episode, unspecified
CPT/HCPCS: 36415; 80053; 80305; 80320; 80329; 81001; 81025; 84439; 84443; 85025; 99283; G0480

== ENCOUNTER 2019-07-25 14:50 | Emergency (ER) | payer OTHER, MEDICAID, SELFPAY ==
[2019-07-25 14:57] VITALS: BP 124/76; PULSE 57; RESP 14; TEMP 36.1; O2SAT 99
[2019-07-25 15:24] LABS: Pregnancy Test Urine Negative (Negative)
[2019-07-25 15:36] LABS: Add Manual Diff / Slide Review NO; Basophils Absolute Auto 100 /uL (0-100); Basophils Percent Auto 0.7 % (0-2); Eosinophils Absolute Auto 100 /uL (0-450); Hematocrit 42.9 % (36-46); Hemoglobin 15.1 g/dL (12.0-16.0); Lymphocytes Absolute Auto 2000 /uL (1100-4500); Lymphocytes Percent Auto 25.3 % (25-40); Mean Corpuscular HGB Conc 35.1 % (30-36); Mean Corpuscular Hemoglobin 31.4 PG (26-34); Mean Corpuscular Volume 89.6 fL (80-100); Monocytes Absolute Auto 400 /uL (0-900); Monocytes Percent Auto 5.7 % (3-14); Neutrophils Absolute Auto 5300 /uL (1500-7000); Neutrophils Percent Auto 67.3 % (50-75); Platelet Count 250 X10^3/uL (150-400); Red Blood Cell Count 4.79 X10^6/uL (4.0-5.2); Red Cell Distribution Width 12.8 % (11.6-14.8); White Blood Cell Count 7.9 X10^3/uL (4.5-11.0)
--- NOTE | 2019-07-25 15:43 | ED.PSYCH ---
HPI - Psych <Shelbie ColladoRAJEEV - Last Filed: 07/25/19 21:46> General Chief Complaint: Psychiatric Symptoms Stated Complaint: Stress, Anxiety Time Seen by Provider: 07/25/19 15:12 Source: patient and EMS Mode of arrival: EMS History of Present Illness HPI Narrative: 39-year-old female with a history of depression and ADHD, presents emergency department today for worsening symptoms. She states the mother a few weeks ago, a broke with my boyfriend a few weeks ago and then we got back together but today it felt like we were going to break up again. Patient then states I panicked and I just wanted to get really far away so I swimming swam in the ocean but he noticed it was really cold and it was not a good swimmer and I didn't want to drown so I came back, patient states she swims back to the shore. Patient states I feel like I just wanted to sleep and never wake up, when asked if she has suicidal thoughts. She denies any additional plans. Patient states she feels safe in the hospital. She has a low-grade headache and a sore throat and states that she is hungry. She states she swam her head under water but did not swallow any water. She denies any other symptoms such as chest pain, shortness of breath, dizziness, nausea, dysuria, flank pain, vomiting, diarrhea, or other concerns. Patient reports taking Wellbutrin, Zoloft, Adderall, and propanolol. Patient states she does see a counselor she last saw them yesterday. I spoke with patient's significant other briefly who stated that he has been trying to break up with the patient but every time he tries she does this. Related Data Home Medications Medication Instructions Recorded Confirmed cholecalciferol (vitamin D3) 4,000 unit PO QPM #0 08/01/16 07/25/19 [Vitamin D3] omega 8-[id number]-fish oil [Fish Oil] 1,000 mg PO QPM #0 08/01/16 07/25/19 cyanocobalamin (vitamin B-12) 5,000 mcg SUBLINGUAL QPM #0 12/11/16 07/25/19 [Vitamin B-12] clonidine HCl 0.2 mg tablet 0.2 mg PO BEDTIME 11/25/18 07/25/19 propranolol 20 mg PO BID PRN 07/20/19 07/25/19 sertraline 150 mg PO BEDTIME 07/20/19 07/25/19 dextroamphetamine-amphetamine 20 mg PO BID 07/22/19 07/25/19 bupropion HCl 300 mg PO QAM 07/25/19 07/25/19 bupropion HCl mg PO 07/25/19 Previous Rx's Medication Instructions Recorded gabapentin 300 mg capsule 600 mg PO TID #180 cap 07/03/19 lorazepam [Ativan] 1 mg PO TID PRN #10 tab 07/20/19 Allergies Allergy/AdvReac Type Severity Reaction Status Date / Time mold [MOLD] Allergy Unknown Verified 07/22/19 14:15 DUST MITES Allergy Unknown Uncoded 07/22/19 14:15 POLLEN Allergy Unknown Uncoded 07/22/19 14:15 Review of Systems <RAJEEV Martinez - Last Filed: 07/25/19 21:46> Review of Systems Narrative: REVIEW OF SYSTEMS: GENERAL: Denies fever or chills. HENT: No head trauma. EYES: No vision changes. CARDIOVASCULAR: No chest pain or syncope. RESPIRATORY: No shortness of breath or cough. GASTROINTESTINAL: No nausea, vomiting, diarrhea, or constipation. GENITOURINARY: No flank pain or dysuria. MUSCULOSKELETAL: No pain, weakness, or deformities. INTEGUMENTARY: No rash, lesions, or pruritus. NEURO: No headaches or melena. PSYCH: Complains of increased anxiety and depression, see HPI. Patient History <RAJEEV Martinez - Last Filed: 07/25/19 21:46> Medical History Patient denies medical problems (Acute) Surgical History No pertinent past surgical history (Acute) Social History Smoking Status: Former smoker Smoking Status: Former smoker alcohol intake frequency: a few times a month Substance Use Type: marijuana Exam <RAJEEV Martinez - Last Filed: 07/25/19 21:46> Initial Vital Signs Initial Vital Signs: Vital Signs Temperature 96.9 F L 07/25/19 14:57 Pulse Rate 57 L 02/07/20 14:57 Respiratory Rate 14 07/25/19 14:57 Blood Pressure 124/76 07/25/19 14:57 Pulse Oximetry 99 07/25/19 14:57 PHYSICAL EXAMINATION: GENERAL: Well groomed, alert, and cooperative. Answers questions promptly and appropriately. Vital signs noted. HENT: Normocephalic, atraumatic. Ear canals patent. Oral mucosa is pink and moist. EYES: Conjunctiva pink, sclera white, no periorbital swelling. CHEST: Normal to inspection and without deformities. CARDIOVASCULAR: S1 and S2 sounds normal. Regular rate and rhythm, no murmurs, clicks, or bruits. No pedal edema. RESPIRATORY: Normal respiratory rate, trachea midline, airway patent. No stridor, nasal flaring or accessory muscle use. Lungs are clear in all youngblood without wheeze, rhonchi, or crackles. GASTROINTESTINAL: Bowel sounds normoactive. Abdomen is soft and non-tender. No organomegaly. MUSCULOSKELETAL: Normal gait and coordination. Equal tone and mass bilaterally. EXTREMITIES: CMS intact. Moves all extremities. SKIN: Warm, dry, soft, appropriate color for ethnicity. No lesions, rashes, or wounds. NEURO: Alert and Oriented X 3. Good coordination. No ataxia, or sensory deficits, or cognitive issues. PSYCH: Appropriate affect and mood. <Destin Garcia MD - Last Filed: 07/30/19 15:05> Initial Vital Signs Initial Vital Signs: Vital Signs Temperature 96.9 F L 07/25/19 14:57 Pulse Rate 57 L 07/25/19 14:57 Respiratory Rate 14 07/25/19 14:57 Blood Pressure 124/76 07/25/19 14:57 Pulse Oximetry 99 07/25/19 14:57 <Dari Schaefer MD - Last Filed: 07/26/19 19:10> Initial Vital Signs Initial Vital Signs: Vital Signs Temperature 96.9 F L 07/25/19 14:57 Pulse Rate 57 L 07/25/19 14:57 Respiratory Rate 14 07/25/19 14:57 Blood Pressure 124/76 07/25/19 14:57 Pulse Oximetry 99 07/25/19 14:57 Course <RAJEEV Martinez - Last Filed: 07/25/19 21:46> Course Course Narrative: Patient's boyfriend has been at bedside for many hours, he seems to decrease patient's anxiety. However, patient is asking for medication to help with anxiety as she is often tearful. She was offered hydroxyzine and refused as she states ?this does not work ?. She does not usually take any medications for anxiety. She was given a dose of Ativan to help with symptoms. Or discuss possible glands, patient does not feel safe going home. She was informed that she will stay with us until she is evaluated in the morning. Patient agrees to safety in the emergency department. She agrees to informed staff if she has any worsening thoughts or any other needs. Patient appears to have bacteria and leukocytes in urine. I have chose to wait for urine culture before treating this as specimen was not a clean catch and patient denies any symptoms. Orders Ordered: Discontinued Medications Bupropion HCl (Wellbutrin Sr) 300 mg PO NOW ONE Stop: 07/26/19 07:49 Last Admin: 07/26/19 08:07 Dose: 300 mg Documented by: PIERRE Gabapentin (Neurontin) 600 mg PO NOW ONE Stop: 07/26/19 07:49 Last Admin: 07/26/19 08:07 Dose: 600 mg Documented by: PIERRE Hydroxyzine Pamoate (Vistaril) 25 mg PO NOW ONE Stop: 07/25/19 18:07 Last Admin: 07/25/19 18:32 Dose: Not Given Documented by: SUZIE Ibuprofen (Advil) 400 mg PO NOW ONE Stop: 07/25/19 15:49 Last Admin: 07/25/19 16:03 Dose: 400 mg Documented by: SUZIE Lorazepam (Ativan) 1 mg PO NOW ONE Stop: 07/25/19 18:56 Last Admin: 07/25/19 19:55 Dose: 1 mg Documented by: JAE Lorazepam (Ativan) 1 mg PO NOW ONE Stop: 07/26/19 07:49 Last Admin: 07/26/19 08:06 Dose: 1 mg Documented by: PIERRE Lorazepam (Ativan) 1 mg PO NOW ONE Stop: 07/26/19 12:44 Last Admin: 07/26/19 13:32 Dose: 1 mg Documented by: PIERRE Lorazepam (Ativan) 1 mg PO NOW ONE Stop: 02/08/20 16:58 Last Admin: 07/26/19 17:05 Dose: 1 mg Documented by: SUZIE Propranolol HCl (Inderal) 20 mg PO NOW ONE Stop: 07/26/19 07:49 Last Admin: 07/26/19 08:07 Dose: 20 mg Documented by: PIERRE [place] Consultation #1: Patient staffed with Dr. Syed who agrees patient would stay for an evaluation as well. Vital Signs Vital signs: Vital Signs - 8 hr 07/26/19 12:43 Temperature 98.0 F Pulse Rate 72 Respiratory Rate 14 Blood Pressure [Left Arm] 118/69 Pulse Oximetry 95 <Destin Garcia MD - Last Filed: 07/30/19 15:05> Orders Ordered: Discontinued Medications Bupropion HCl (Wellbutrin Sr) 300 mg PO NOW ONE Stop: 07/26/19 07:49 Last Admin: 07/26/19 08:07 Dose: 300 mg Documented by: PIERRE Gabapentin (Neurontin) 600 mg PO NOW ONE Stop: 07/26/19 07:49 Last Admin: 07/26/19 08:07 Dose: 600 mg Documented by: PIERRE Hydroxyzine Pamoate (Vistaril) 25 mg PO NOW ONE Stop: 07/25/19 18:07 Last Admin: 07/25/19 18:32 Dose: Not Given Documented by: SUZIE Ibuprofen (Advil) 400 mg PO NOW ONE Stop: 07/25/19 15:49 Last Admin: 07/25/19 16:03 Dose: 400 mg Documented by: SUZIE Lorazepam (Ativan) 1 mg PO NOW ONE Stop: 07/25/19 18:56 Last Admin: 07/25/19 19:55 Dose: 1 mg Documented by: JAE Lorazepam (Ativan) 1 mg PO NOW ONE Stop: 07/26/19 07:49 Last Admin: 07/26/19 08:06 Dose: 1 mg Documented by: PIERRE Lorazepam (Ativan) 1 mg PO NOW ONE Stop: 07/26/19 12:44 Last Admin: 07/26/19 13:32 Dose: 1 mg Documented by: PIERRE Lorazepam (Ativan) 1 mg PO NOW ONE Stop: 07/26/19 16:58 Last Admin: 07/26/19 17:05 Dose: 1 mg Documented by: SUZIE Propranolol HCl (Inderal) 20 mg PO NOW ONE Stop: 07/26/19 07:49 Last Admin: 07/26/19 08:07 Dose: 20 mg Documented by: PIERRE Vital Signs Vital signs: Vital Signs - 8 hr 07/26/19 12:43 Temperature 98.0 F Pulse Rate 72 Respiratory Rate 14 Blood Pressure [Left Arm] 118/69 Pulse Oximetry 95 <Dari Schaefer MD - Last Filed: 07/26/19 19:10> Orders Ordered: Discontinued Medications Bupropion HCl (Wellbutrin Sr) 300 mg PO NOW ONE Stop: 07/26/19 07:49 Last Admin: 07/26/19 08:07 Dose: 300 mg Documented by: PIERRE Gabapentin (Neurontin) 600 mg PO NOW ONE Stop: 07/26/19 07:49 Last Admin: 07/26/19 08:07 Dose: 600 mg Documented by: PIERRE Hydroxyzine Pamoate (Vistaril) 25 mg PO NOW ONE Stop: 07/25/19 18:07 Last Admin: 07/25/19 18:32 Dose: Not Given Documented by: SUZIE Ibuprofen (Advil) 400 mg PO NOW ONE Stop: 07/25/19 15:49 Last Admin: 07/25/19 16:03 Dose: 400 mg Documented by: SUZIE Lorazepam (Ativan) 1 mg PO NOW ONE Stop: 07/25/19 18:56 Last Admin: 07/25/19 19:55 Dose: 1 mg Documented by: JAE Lorazepam (Ativan) 1 mg PO NOW ONE Stop: 07/26/19 07:49 Last Admin: 07/26/19 08:06 Dose: 1 mg Documented by: PIERRE Lorazepam (Ativan) 1 mg PO NOW ONE Stop: 07/26/19 12:44 Last Admin: 07/26/19 13:32 Dose: 1 mg Documented by: PIERRE Lorazepam (Ativan) 1 mg PO NOW ONE Stop: 07/26/19 16:58 Last Admin: 07/26/19 17:05 Dose: 1 mg Documented by: SUZIE Propranolol HCl (Inderal) 20 mg PO NOW ONE Stop: 07/26/19 07:49 Last Admin: 07/26/19 08:07 Dose: 20 mg Documented by: PIERRE Reevaluation(s) 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 Currently in social crisis, her partner is at the bedside. Her older teen children are currently safe at home. She saw her psychiatrist on yet continues to have suicidal thoughts. She is interested in a voluntary admission. Because this is her 3rd ER visit and she seen her psychiatrist it would be reasonable to see this was a failed outpatient attempt to deal with her suicidal ideation. Will begin to make phone calls to look for bed availability. If there are no beds available will work on safer outpatient plan 12:44 spoke with Gifty. She is increasingly anxious, emotionally labile and is requesting another dose of Ativan. Her prescription for home use as she can take it up to 3 times a day which she typically does not do. She has had a dose this morning. Her is currently in the room and he believes he is exacerbating her anxiety. In the meantime she continues to wait in the room as we continue to look for additional beds. Will order a mg of Ativan at this time Vital Signs Vital signs: Vital Signs - 8 hr 07/26/19 12:43 Temperature 98.0 F Pulse Rate 72 Respiratory Rate 14 Blood Pressure [Left Arm] 118/69 Pulse Oximetry 95 MDM - Psych <RAJEEV Martinez - Last Filed: 07/25/19 21:46> Medical Records Attestation: I reviewed the patient's medical records. Lab Data Attestation: I reviewed the patient's lab results. Result diagrams: 07/25/19 15:26 07/25/19 15:26 Labs: Lab Results 07/25/19 07/25/19 07/25/19 Range/Units 15:05 15:05 15:05 WBC (4.5-11.0) X10^3/uL RBC (4.0-5.2) X10^6/uL Hgb (12.0-16.0) g/dL Hct (36-46) % MCV (80-100) fL MCH (26-34) PG MCHC (30-36) % RDW (11.6-14.8) % Plt Count (150-400) X10^3/uL Neut % (Auto) (50-75) % Lymph % (Auto) (25-40) % [place] % (Auto) (3-14) % Eos % (Auto) (2-4) % Baso % (Auto) (0-2) % Neut # (Auto) (9948-3918) /uL Lymph # (Auto) (2082-7066) /uL [place] # (Auto) (0-900) /uL Eos # (Auto) (0-450) /uL Baso # (Auto) (0-100) /uL Sodium (137-145) mmol/L Potassium (3.4-5.1) mmol/L Chloride (98-107) mmol/L Carbon Dioxide (22-32) mmol/L BUN (7-17) mg/dL Creatinine (0.52-1.04) mg/dL Estimated GFR (>60) mL/min BUN/Creatinine Ratio (6-22) Glucose (70-100) mg/dL Calcium (8.4-10.2) mg/dL Total Bilirubin (0.2-1.3) mg/dL AST (14-36) IU/L ALT (<35) IU/L Alkaline Phosphatase (38-126) U/L Total Protein (6.3-8.2) g/dL Albumin (3.5-5.0) g/dL Globulin (1.7-4.1) g/dL Albumin/Globulin Ratio (1.0-2.8) TSH (0.47-4.68) uIU/mL Urine Color Yellow Urine Appearance Clear Urine pH 7.0 (4.5-8.0) Ur Specific [place] 1.010 (1.000-1.035) Urine Protein Negative (Negative) Urine Glucose (UA) Negative (Negative) g/dL Urine Ketones Negative (NEGATIVE) Urine Occult Blood 3+ H (Negative) Urine Nitrate Negative (Negative) Urine Bilirubin Negative (NEGATIVE) Urine Urobilinogen 0.2 (0.2) E.U./dL Ur Leukocyte Esterase Trace H (NEGATIVE) Urine RBC 1-5/hpf (0-5/HPF) Urine WBC 1-5/hpf (0-5/HPF) Ur Squamous Epith Cells 1-5 /hpf (0-5/HPF) Ur Transition Epith Cell 0-1/hpf (0-5/HPF) Urine Bacteria Many (>30) H (None) Ur Culture Indicated? Specimen cultured Urine Test Negative (Negative) U Opiates 300ng/mL cut Negative (Negative) Ur Oxycodone Screen Negative (Negative) Urine Methadone Screen Negative (Negative) Ur Barbiturates Screen Negative (Negative) U Tricyclic Antidepress Negative (Negative) Ur Phencyclidine Scrn Negative (Negative) Ur Amphetamines Screen Negative (Negative) U Methamphetamines Scrn Negative (Negative) Ur MDMA Scrn (Ecstasy) Negative (Negative) U Benzodiazepines Scrn Negative (Negative) Urine Cocaine Screen Negative (Negative) U Marijuana (THC) Screen Negative (Negative) Ethyl Alcohol ( - 10) mg/dL 07/25/19 07/25/19 07/25/19 Range/Units 15:26 15:26 15:26 WBC 7.9 (4.5-11.0) X10^3/uL RBC 4.79 (4.0-5.2) X10^6/uL Hgb 15.1 (12.0-16.0) g/dL Hct 42.9 (36-46) % MCV 89.6 (80-100) fL MCH 31.4 (26-34) PG MCHC 35.1 (30-36) % RDW 12.8 (11.6-14.8) % Plt Count 250 (150-400) X10^3/uL Neut % (Auto) 67.3 (50-75) % Lymph % (Auto) 25.3 (25-40) % [place] % (Auto) 5.7 (3-14) % Eos % (Auto) 1.0 L (2-4) % Baso % (Auto) 0.7 (0-2) % Neut # (Auto) 5300 (1500-4781) /uL Lymph # (Auto) 2000 (6068-9547) /uL [place] # (Auto) 400 (0-900) /uL Eos # (Auto) 100 (0-450) /uL Baso # (Auto) 100 (0-100) /uL Sodium 146 H (137-145) mmol/L Potassium 4.6 (3.4-5.1) mmol/L Chloride 106 (98-107) mmol/L Carbon Dioxide 27 (22-32) mmol/L BUN 8 (7-17) mg/dL Creatinine 0.70 (0.52-1.04) mg/dL Estimated GFR > 60.0 (>60) mL/min BUN/Creatinine Ratio 11.4 (6-22) Glucose 102 H (70-100) mg/dL Calcium 9.1 (8.4-10.2) mg/dL Total Bilirubin 0.7 (0.2-1.3) mg/dL AST 30 (14-36) IU/L ALT 16 (<35) IU/L Alkaline Phosphatase 94 (38-126) U/L Total Protein 7.7 (6.3-8.2) g/dL Albumin 4.5 (3.5-5.0) g/dL Globulin 3.2 (1.7-4.1) g/dL Albumin/Globulin Ratio 1.4 (1.0-2.8) TSH 0.67 D (0.47-4.68) uIU/mL Urine Color Urine Appearance Urine pH (4.5-8.0) Ur Specific [place] (1.000-1.035) Urine Protein (Negative) Urine Glucose (UA) (Negative) g/dL Urine Ketones (NEGATIVE) Urine Occult Blood (Negative) Urine Nitrate (Negative) Urine Bilirubin (NEGATIVE) Urine Urobilinogen (0.2) E.U./dL Ur Leukocyte Esterase (NEGATIVE) Urine RBC (0-5/HPF) Urine WBC (0-5/HPF) Ur Squamous Epith Cells (0-5/HPF) Ur Transition Epith Cell (0-5/HPF) Urine Bacteria (None) Ur Culture Indicated? Urine Test (Negative) U Opiates 300ng/mL cut (Negative) Ur Oxycodone Screen (Negative) Urine Methadone Screen (Negative) Ur Barbiturates Screen (Negative) U Tricyclic Antidepress (Negative) Ur Phencyclidine Scrn (Negative) Ur Amphetamines Screen (Negative) U Methamphetamines Scrn (Negative) Ur MDMA Scrn (Ecstasy) (Negative) U Benzodiazepines Scrn (Negative) Urine Cocaine Screen (Negative) U Marijuana (THC) Screen (Negative) Ethyl Alcohol < 10 ( - 10) mg/dL MDM Narrative Medical decision making narrative: This is a 39-year-old female with a history of depression and ADHD presents emergency department after trying to swim away. Her support person at the bedside as her boyfriend has been trying to break up with her multiple times but states that every time he chest recover with her something this happens. She reports she does not feel safe at home but agrees to safety in the emergency department. Due to patient's actions, clear plan, and inability he agreed to be safe at home, I suggest that patient stay overnight for a social work evaluation in the morning. Patient was given a dose of Ativan to help with anxiety. She has been eating small amounts and drinking a small amount of liquid in the emergency department. She has not been combative but has been cooperative, often seen tearful. Patient is medically clear, I refraining from treating her urine which is positive for bacteria in urine until culture has returned as patient does not have any symptoms. Patient was signed out to Dr. Garcia for continued care. <Destin Garcia MD - Last Filed: 07/30/19 15:05> Medical Records Attestation: I reviewed the patient's medical records. Lab Data Attestation: I reviewed the patient's lab results. Labs: Lab Results 07/25/19 07/25/19 07/25/19 Range/Units 15:05 15:05 15:05 WBC (4.5-11.0) X10^3/uL RBC (4.0-5.2) X10^6/uL Hgb (12.0-16.0) g/dL Hct (36-46) % MCV (80-100) fL MCH (26-34) PG MCHC (30-36) % RDW (11.6-14.8) % Plt Count (150-400) X10^3/uL Neut % (Auto) (50-75) % Lymph % (Auto) (25-40) % [place] % (Auto) (3-14) % Eos % (Auto) (2-4) % Baso % (Auto) (0-2) % Neut # (Auto) (9170-2673) /uL Lymph # (Auto) (7668-6518) /uL [place] # (Auto) (0-900) /uL Eos # (Auto) (0-450) /uL Baso # (Auto) (0-100) /uL Sodium (137-145) mmol/L Potassium (3.4-5.1) mmol/L Chloride (98-107) mmol/L Carbon Dioxide (22-32) mmol/L BUN (7-17) mg/dL Creatinine (0.52-1.04) mg/dL Estimated GFR (>60) mL/min BUN/Creatinine Ratio (6-22) Glucose (70-100) mg/dL Calcium (8.4-10.2) mg/dL Total Bilirubin (0.2-1.3) mg/dL AST (14-36) IU/L ALT (<35) IU/L Alkaline Phosphatase (38-126) U/L Total Protein (6.3-8.2) g/dL Albumin (3.5-5.0) g/dL Globulin (1.7-4.1) g/dL Albumin/Globulin Ratio (1.0-2.8) TSH (0.47-4.68) uIU/mL Urine Color Yellow Urine Appearance Clear Urine pH 7.0 (4.5-8.0) Ur Specific [place] 1.010 (1.000-1.035) Urine Protein Negative (Negative) Urine Glucose (UA) Negative (Negative) g/dL Urine Ketones Negative (NEGATIVE) Urine Occult Blood 3+ H (Negative) Urine Nitrate Negative (Negative) Urine Bilirubin Negative (NEGATIVE) Urine Urobilinogen 0.2 (0.2) E.U./dL Ur Leukocyte Esterase Trace H (NEGATIVE) Urine RBC 1-5/hpf (0-5/HPF) Urine WBC 1-5/hpf (0-5/HPF) Ur Squamous Epith Cells 1-5 /hpf (0-5/HPF) Ur Transition Epith Cell 0-1/hpf (0-5/HPF) Urine Bacteria Many (>30) H (None) Ur Culture Indicated? Specimen cultured Urine Test Negative (Negative) U Opiates 300ng/mL cut Negative (Negative) Ur Oxycodone Screen Negative (Negative) Urine Methadone Screen Negative (Negative) Ur Barbiturates Screen Negative (Negative) U Tricyclic Antidepress Negative (Negative) Ur Phencyclidine Scrn Negative (Negative) Ur Amphetamines Screen Negative (Negative) U Methamphetamines Scrn Negative (Negative) Ur MDMA Scrn (Ecstasy) Negative (Negative) U Benzodiazepines Scrn Negative (Negative) Urine Cocaine Screen Negative (Negative) U Marijuana (THC) Screen Negative (Negative) Ethyl Alcohol ( - 10) mg/dL 07/25/19 07/25/19 07/25/19 Range/Units 15:26 15:26 15:26 WBC 7.9 (4.5-11.0) X10^3/uL RBC 4.79 (4.0-5.2) X10^6/uL Hgb 15.1 (12.0-16.0) g/dL Hct 42.9 (36-46) % MCV 89.6 (80-100) fL MCH 31.4 (26-34) PG MCHC 35.1 (30-36) % RDW 12.8 (11.6-14.8) % Plt Count 250 (150-400) X10^3/uL Neut % (Auto) 67.3 (50-75) % Lymph % (Auto) 25.3 (25-40) % [place] % (Auto) 5.7 (3-14) % Eos % (Auto) 1.0 L (2-4) % Baso % (Auto) 0.7 (0-2) % Neut # (Auto) 5300 (1138-7513) /uL Lymph # (Auto) 2000 (6687-5228) /uL [place] # (Auto) 400 (0-900) /uL Eos # (Auto) 100 (0-450) /uL Baso # (Auto) 100 (0-100) /uL Sodium 146 H (137-145) mmol/L Potassium 4.6 (3.4-5.1) mmol/L Chloride 106 (98-107) mmol/L Carbon Dioxide 27 (22-32) mmol/L BUN 8 (7-17) mg/dL Creatinine 0.70 (0.52-1.04) mg/dL Estimated GFR > 60.0 (>60) mL/min BUN/Creatinine Ratio 11.4 (6-22) Glucose 102 H (70-100) mg/dL Calcium 9.1 (8.4-10.2) mg/dL Total Bilirubin 0.7 (0.2-1.3) mg/dL AST 30 (14-36) IU/L ALT 16 (<35) IU/L Alkaline Phosphatase 94 (38-126) U/L Total Protein 7.7 (6.3-8.2) g/dL Albumin 4.5 (3.5-5.0) g/dL Globulin 3.2 (1.7-4.1) g/dL Albumin/Globulin Ratio 1.4 (1.0-2.8) TSH 0.67 D (0.47-4.68) uIU/mL Urine Color Urine Appearance Urine pH (4.5-8.0) Ur Specific [place] (1.000-1.035) Urine Protein (Negative) Urine Glucose (UA) (Negative) g/dL Urine Ketones (NEGATIVE) Urine Occult Blood (Negative) Urine Nitrate (Negative) Urine Bilirubin (NEGATIVE) Urine Urobilinogen (0.2) E.U./dL Ur Leukocyte Esterase (NEGATIVE) Urine RBC (0-5/HPF) Urine WBC (0-5/HPF) Ur Squamous Epith Cells (0-5/HPF) Ur Transition Epith Cell (0-5/HPF) Urine Bacteria (None) Ur Culture Indicated? Urine Test (Negative) U Opiates 300ng/mL cut (Negative) Ur Oxycodone Screen (Negative) Urine Methadone Screen (Negative) Ur Barbiturates Screen (Negative) U Tricyclic Antidepress (Negative) Ur Phencyclidine Scrn (Negative) Ur Amphetamines Screen (Negative) U Methamphetamines Scrn (Negative) Ur MDMA Scrn (Ecstasy) (Negative) U Benzodiazepines Scrn (Negative) Urine Cocaine Screen (Negative) U Marijuana (THC) Screen (Negative) Ethyl Alcohol < 10 ( - 10) mg/dL MDM Narrative Medical decision making narrative: Report was provided by the [employer] Shelbie. The patient has been medically cleared and is waiting for social service to evaluate her for possible mental health placement. The history is that the patient would not mind falling asleep and never waking up. Earlier in her evaluation prior to coming into the emergency department it was reported that the patient tried swimming out into the ocean but was getting cold and decided to return because she did not want to drown. She consequently came into the emergency department to be evaluated. She has been sleeping comfortably through the night and we are waiting for social worker assistant to evaluate. Report was given to . <Dari Schaefer MD - Last Filed: 07/26/19 19:10> Lab Data Labs: Lab Results 07/25/19 07/25/19 07/25/19 Range/Units 15:05 15:05 15:05 WBC (4.5-11.0) X10^3/uL RBC (4.0-5.2) X10^6/uL Hgb (12.0-16.0) g/dL Hct (36-46) % MCV (80-100) fL MCH (26-34) PG MCHC (30-36) % RDW (11.6-14.8) % Plt Count (150-400) X10^3/uL Neut % (Auto) (50-75) % Lymph % (Auto) (25-40) % [place] % (Auto) (3-14) % Eos % (Auto) (2-4) % Baso % (Auto) (0-2) % Neut # (Auto) (0918-7425) /uL Lymph # (Auto) (6629-5226) /uL [place] # (Auto) (0-900) /uL Eos # (Auto) (0-450) /uL Baso # (Auto) (0-100) /uL Sodium (137-145) mmol/L Potassium (3.4-5.1) mmol/L Chloride (98-107) mmol/L Carbon Dioxide (22-32) mmol/L BUN (7-17) mg/dL Creatinine (0.52-1.04) mg/dL Estimated GFR (>60) mL/min BUN/Creatinine Ratio (6-22) Glucose (70-100) mg/dL Calcium (8.4-10.2) mg/dL Total Bilirubin (0.2-1.3) mg/dL AST (14-36) IU/L ALT (<35) IU/L Alkaline Phosphatase (38-126) U/L Total Protein (6.3-8.2) g/dL Albumin (3.5-5.0) g/dL Globulin (1.7-4.1) g/dL Albumin/Globulin Ratio (1.0-2.8) TSH (0.47-4.68) uIU/mL Urine Color Yellow Urine Appearance Clear Urine pH 7.0 (4.5-8.0) Ur Specific [place] 1.010 (1.000-1.035) Urine Protein Negative (Negative) Urine Glucose (UA) Negative (Negative) g/dL Urine Ketones Negative (NEGATIVE) Urine Occult Blood 3+ H (Negative) Urine Nitrate Negative (Negative) Urine Bilirubin Negative (NEGATIVE) Urine Urobilinogen 0.2 (0.2) E.U./dL Ur Leukocyte Esterase Trace H (NEGATIVE) Urine RBC 1-5/hpf (0-5/HPF) Urine WBC 1-5/hpf (0-5/HPF) Ur Squamous Epith Cells 1-5 /hpf (0-5/HPF) Ur Transition Epith Cell 0-1/hpf (0-5/HPF) Urine Bacteria Many (>30) H (None) Ur Culture Indicated? Specimen cultured Urine Test Negative (Negative) U Opiates 300ng/mL cut Negative (Negative) Ur Oxycodone Screen Negative (Negative) Urine Methadone Screen Negative (Negative) Ur Barbiturates Screen Negative (Negative) U Tricyclic Antidepress Negative (Negative) Ur Phencyclidine Scrn Negative (Negative) Ur Amphetamines Screen Negative (Negative) U Methamphetamines Scrn Negative (Negative) Ur MDMA Scrn (Ecstasy) Negative (Negative) U Benzodiazepines Scrn Negative (Negative) Urine Cocaine Screen Negative (Negative) U Marijuana (THC) Screen Negative (Negative) Ethyl Alcohol ( - 10) mg/dL 07/25/19 07/25/19 07/25/19 Range/Units 15:26 15:26 15:26 WBC 7.9 (4.5-11.0) X10^3/uL RBC 4.79 (4.0-5.2) X10^6/uL Hgb 15.1 (12.0-16.0) g/dL Hct 42.9 (36-46) % MCV 89.6 (80-100) fL MCH 31.4 (26-34) PG MCHC 35.1 (30-36) % RDW 12.8 (11.6-14.8) % Plt Count 250 (150-400) X10^3/uL Neut % (Auto) 67.3 (50-75) % Lymph % (Auto) 25.3 (25-40) % [place] % (Auto) 5.7 (3-14) % Eos % (Auto) 1.0 L (2-4) % Baso % (Auto) 0.7 (0-2) % Neut # (Auto) 5300 (1684-6174) /uL Lymph # (Auto) 2000 (2613-1368) /uL [place] # (Auto) 400 (0-900) /uL Eos # (Auto) 100 (0-450) /uL Baso # (Auto) 100 (0-100) /uL Sodium 146 H (137-145) mmol/L Potassium 4.6 (3.4-5.1) mmol/L Chloride 106 (98-107) mmol/L Carbon Dioxide 27 (22-32) mmol/L BUN 8 (7-17) mg/dL Creatinine 0.70 (0.52-1.04) mg/dL Estimated GFR > 60.0 (>60) mL/min BUN/Creatinine Ratio 11.4 (6-22) Glucose 102 H (70-100) mg/dL Calcium 9.1 (8.4-10.2) mg/dL Total Bilirubin 0.7 (0.2-1.3) mg/dL AST 30 (14-36) IU/L ALT 16 (<35) IU/L Alkaline Phosphatase 94 (38-126) U/L Total Protein 7.7 (6.3-8.2) g/dL Albumin 4.5 (3.5-5.0) g/dL Globulin 3.2 (1.7-4.1) g/dL Albumin/Globulin Ratio 1.4 (1.0-2.8) TSH 0.67 D (0.47-4.68) uIU/mL Urine Color Urine Appearance Urine pH (4.5-8.0) Ur Specific [place] (1.000-1.035) Urine Protein (Negative) Urine Glucose (UA) (Negative) g/dL Urine Ketones (NEGATIVE) Urine Occult Blood (Negative) Urine Nitrate (Negative) Urine Bilirubin (NEGATIVE) Urine Urobilinogen (0.2) E.U./dL Ur Leukocyte Esterase (NEGATIVE) Urine RBC (0-5/HPF) Urine WBC (0-5/HPF) Ur Squamous Epith Cells (0-5/HPF) Ur Transition Epith Cell (0-5/HPF) Urine Bacteria (None) Ur Culture Indicated? Urine Test (Negative) U Opiates 300ng/mL cut (Negative) Ur Oxycodone Screen (Negative) Urine Methadone Screen (Negative) Ur Barbiturates Screen (Negative) U Tricyclic Antidepress (Negative) Ur Phencyclidine Scrn (Negative) Ur Amphetamines Screen (Negative) U Methamphetamines Scrn (Negative) Ur MDMA Scrn (Ecstasy) (Negative) U Benzodiazepines Scrn (Negative) Urine Cocaine Screen (Negative) U Marijuana (THC) Screen (Negative) Ethyl Alcohol < 10 ( - 10) mg/dL Discharge Plan Departure Patient Disposition: Xfer Psychiatric Hosp Clinical Impression: Anxiety, Depression Discharge Date/Time: 07/26/19 17:30
[2019-07-25 15:51] LABS: Alanine Aminotransferase 16 IU/L (<35); Albumin 4.5 g/dL (3.5-5.0); Albumin Globulin Ratio 1.4 (1.0-2.8); Alkaline Phosphatase 94 U/L (38-126); Aspartate Aminotransferase 30 IU/L (14-36); BUN Creatinine Ratio 11.4 (6-22); Bilirubin Total 0.7 mg/dL (0.2-1.3); Blood Urea Nitrogen 8 mg/dL (7-17); Calcium 9.1 mg/dL (8.4-10.2); Carbon Dioxide 27 mmol/L (22-32); Chloride 106 mmol/L (98-107); Estimated Glomerular Filt Rate > 60.0 mL/min (>60); Globulin 3.2 g/dL (1.7-4.1); Glucose 102 mg/dL (70-100); Sodium 146 mmol/L (137-145); Total Protein 7.7 g/dL (6.3-8.2)
[2019-07-25 15:53] LABS: Potassium 4.6 mmol/L (3.4-5.1)
[2019-07-25] MEDS: IBUPROFEN 400 MG TABLET PO (16:03)
[2019-07-25 16:09] LABS: Ethanol (ETOH) < 10 mg/dL
[2019-07-25 16:10] LABS: HEMOLYSIS 75 (0-50)
[2019-07-25 16:13] LABS: Appearance Urine UA CLEAR; Bilirubin Urine UA NEGATIVE (NEGATIVE); Color Urine UA YELLOW; Glucose Urine UA NEGATIVE (Negative); Ketones Urine UA NEGATIVE (NEGATIVE); Leukocyte Esterase Urine UA TRACE (NEGATIVE); Nitrite Urine UA NEGATIVE (Negative); Occult Blood Urine UA 3+ (Negative); Protein Urine UA NEGATIVE (Negative); Urobilinogen Urine UA 0.2 E.U./dL (0.2)
[2019-07-25 16:18] LABS: Ur Creatinine Normal (Normal); Ur Specific Gravity Normal (Normal); Urine pH Normal (Normal)
[2019-07-25 16:19] LABS: UR Morphine/Opiate cutoff 300 Negative (Negative); Urine Amphetamines Negative (Negative); Urine Barbiturates Negative (Negative); Urine Benzodiazepines Negative (Negative); Urine Cocaine Negative (Negative); Urine MDMA Negative (Negative); Urine Methadone Negative (Negative); Urine Methamphetamines Negative (Negative); Urine Oxycodone Negative (Negative); Urine Phencyclidine Negative (Negative); Urine Tetrahydrocannabinol Negative (Negative); Urine Tricyclic Antidepressant Negative (Negative)
[2019-07-25 16:20] LABS: Thyroid Stimulating Hormone 0.67 uIU/mL (0.47-4.68)
[2019-07-25 16:21] LABS: Bacteria Urine Many (>30); Culture Indicated Urine Specimen Cultured; RBC Urine 1-5/HPF (0-5/HPF); Squamous Epithelial Cell Urine 1-5 /HPF (0-5/HPF); Transitional Epi Cells Urine 0-1/HPF (0-5/HPF); WBC Urine 1-5/HPF (0-5/HPF)
[2019-07-25] MEDS: LORazepam 0.5 MG TABLET 1 MG PO (19:55)
[2019-07-25 22:15] VITALS: BP 100/57; PULSE 56; RESP 17; TEMP 36.8; O2SAT 98
[2019-07-26] MEDS: LORazepam 0.5 MG TABLET 1 MG PO ×3 (08:06→17:05)
[2019-07-26] MEDS: PROPRANOLOL 10 MG TABLET 20 MG PO (08:07)
[2019-07-26] MEDS: buPROPion SR 150 MG TAB 300 MG PO (08:07)
[2019-07-26] MEDS: GABAPENTIN 600 MG TABLET PO (08:07)
[2019-07-26 08:59] VITALS: BP 117/70; PULSE 67; RESP 14; TEMP 36.6; O2SAT 100
--- NOTE | 2019-07-26 09:05 | PC.NURSE ---
Addendum entered by Julio Bajwa CNA 07/26/19 09:23: SW in talking to Pt. after she gets done talking to SW she is going to take a shower. Original Note: Pt sitting in bed with knees elevated looking at phone. Pt stated that she was tied and didn't sleep well last night.
--- NOTE | 2019-07-26 09:55 | PC.NURSE ---
Pt talking with visitor (Ravinder) and is talking and started to cry.
--- NOTE | 2019-07-26 12:33 | CM.SWNOTE ---
Addendum entered by PADDY Castro 07/26/19 15:24: Inpt MH bed found at [facility] in [place] P# [phone], contact in intake is Gen. Accepting provider is Dr Mazariegos. RN to RN report number is P# [phone]. Relayed all to RESIDENTIAL LIVING ASSISTANT/TRINI Navarro and she secured BLS transport on Gifty's behalf for p/u at approx 1700, Gifty remains agreeable/ Vol placement. 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 Precipitating Event(s) Sudden of her mother one month ago, of her spouse and father of her children: 15, 18, and 21 yo, 6 years ago. And a year long, tumultuous relationship w/ Ravinder, he ended their relationship before her swim Current Behavioral Health Provider(s) Dr Douglas, psychiatrist, Include Facility, Provider, Ph. # seeing for 6 years.. Gifty will also be seeing a new counselor in this private practice, scheduled for Sunday07.29.19 Psych. Hx Mental Health and Chemical One prior suicide attempt by Dependency aspirin OD when 13 yo and subsequent inpt MH stay. none since. one ER visit at [facility] in February 2019 for anxiety/ depressive symptoms and two here at for increasing panic and anxiety 2.3.20 and 2 .4.20 Family Hx of Behavioral Abuse None reported Psychiatric Hospitalizations (date(s)/ one, location unknown. Gifty location) was raised in [place] Support System(s) Teenage children, sister living in [place], [place], orthodoxy community Legal Matters - Outstanding Issues None reported Orientation (Person/Place/Time) A+O Affect Tearful Thought Content - Specify/Describe Obession over tumultuous Obsessions, Delusions, Hallucinations relationship w/BF Ravinder, wishing things were different or okay w/Ravinder Thought Processes (Oodcgec-Nlggehvt-Cdgy Logical but not goal directed, Tiuxdock-Wzuwsibg-Hnqfytqltn- organized thought Kdxcttscvvtvdw-Chkdhug-Elykzfqvwbpr- Thought Blocking) Speech (Qkzger-Bwjf-Iwthuxf-Rapid-Soft- Normal Loud-Pressured) Motor (Reifnp-Hwuwqqclv-Yrrq-Other) Normal Insight (Present-Partially Present- Impaired insight and judgment Impaired) d/t h/o depression, anxiety and h/o loss and grief, debilitating anxiety Judgement (Intact-Impaired) Impaired Impulse Control (Adequate-Impaired) Impulsive, swam out to sea as a coping mechanism for pain felt after her break up Memory (Whxfnrqji-Qrjloj-Isdhex, Seems intact Impaired-Intact) Concentration (Intact-Impaired) Impaired, emotional and hysterical at times Attention (Intact-Impaired) Intact Behavior (Appropriate-Inappropriate) Appropriate Additional Comment Calm and cooperative w/care, tearful, able to complete all ADLs independently Suicidal Ideation (Plan) Yes: Passive suicidal ideation increasing for the last week Comment Gifty denies auditory or visual hallucinations but admits to ongoing thoughts of suicide, going to sleep and not waking up. Gifty admits also to living w/debilitating depression and anxiety, panic has increased this week secondary too relationshio strife, and Gifty is having a difficult time following psychiatrist's guidance on coping strategies for getting through daily panic attacks. Gitfy does not take any ativan , as prescribed, to assist w/ panic attacks, Gifty cannot answer why not? Intervention This LIQUIFIED NATURAL GAS TECHNICIAN initially felt Gifty might be a good candidate for safety planning for home, just as professor of social work [place] Ly had done w/ Gifty 2., though in reviewing her failed attempt at outpt stabilization, ie seeing psychiatrist .12.05 and this being the thired ER visit in a week, it seems prudent to attempt inpt MH stabilization on Gifty's behalf to assist w/MH stabilization and review of med list/ med management RA Plan Attempt inpt MH unit, [facility] has a bed today PADDY Castro
[2019-07-26 12:43] VITALS: BP 118/69; PULSE 72; RESP 14; TEMP 36.7; O2SAT 95
--- NOTE | 2019-07-26 12:48 | PC.NURSE ---
Pt asked in she could have anxiety medication and asked to speak to the doctor, after talking to the doctor she got agitated and the visitor had some words. Visitor came out to tell me that he could see that he wasn't making the situation any better so he has left and will be back shortly to drop of patients clothing.
--- NOTE | 2019-07-26 13:13 | PC.NURSE ---
Pts Visitor (Ravinder) came back with clean set of clothes and is talking with the Pt before he leaves, she got upset and told him she didn't want him to leave. Pt gave her a couple hugs and a kiss on the forehead and preceded to leave.
--- NOTE | 2019-07-26 16:26 | PC.NURSE ---
Pt's. Visitor came back (Ravinder). Pt started to get teary eyed on the arrival of her visitor and is now crying. They are whispering back and forth so staff can't hear the conversation. Pt laying down crying talking to visitor.
== END 2019-07-26 17:30 ==
PROVIDERS: Nurse Practitioner; Emergency Provider Emergency Medicine; PCP Family Medicine
DX: F41.9 Anxiety disorder, unspecified (principal); F32.9 Major depressive disorder, single episode, unspecified
CPT/HCPCS: 36415; 80053; 80305; 80320; 81001; 81025; 84443; 85025; 87077; 87086; 87186; 99284

== ENCOUNTER → 2022-02-17 10:56 | Outpatient (CLI) | payer OTHER, MEDICAID, SELFPAY ==
[2022-02-17 12:52] LABS: Add Manual Diff / Slide Review NO; Basophils Absolute Auto 0 /uL (0-100); Basophils Percent Auto 0.5 % (0-2); Eosinophils Absolute Auto 100 /uL (0-450); Eosinophils Percent Auto 2.2 % (2-4); Hematocrit 41.5 % (36-46); Hemoglobin 14.3 g/dL (12.0-16.0); Lymphocytes Absolute Auto 1800 /uL (1100-4500); Lymphocytes Percent Auto 33.1 % (25-40); Mean Corpuscular HGB Conc 34.6 % (30-36); Mean Corpuscular Hemoglobin 30.5 PG (26-34); Mean Corpuscular Volume 88.3 fL (80-100); Monocytes Absolute Auto 400 /uL (0-900); Monocytes Percent Auto 7.3 % (3-14); Neutrophils Absolute Auto 3100 /uL (1500-7000); Neutrophils Percent Auto 56.9 % (50-75); Platelet Count 236 X10^3/uL (150-400); Red Cell Distribution Width 13.2 % (11.6-14.8); White Blood Cell Count 5.5 X10^3/uL (4.5-11.0)
[2022-02-17 13:53] LABS: Alanine Aminotransferase 14 IU/L (<35); Albumin 4.1 g/dL (3.5-5.0); Albumin Globulin Ratio 1.5 (1.0-2.8); Alkaline Phosphatase 74 U/L (38-126); Aspartate Aminotransferase 21 IU/L (14-36); BUN Creatinine Ratio 13.8 (6-22); Bilirubin Total 0.4 mg/dL (0.2-1.3); Blood Urea Nitrogen 9 mg/dL (7-17); C-Reactive Protein Quant < 0.5 mg/dL (<1.0); Calcium 8.7 mg/dL (8.4-10.2); Carbon Dioxide 19 mmol/L (22-32); Chloride 110 mmol/L (98-107); Cholesterol 179 mg/dL (140-199); Estimated Glomerular Filt Rate > 60 mL/min (>60); Globulin 2.7 g/dL (1.7-4.1); Glucose 91 mg/dL (70-100); HDL Cholesterol 42 mg/dL (40-60); HEMOLYSIS 25 (0-50); LDL Cholesterol Calculated 118 mg/dL (<100); Potassium 4.4 mmol/L (3.4-5.1); Sodium 137 mmol/L (137-145); Total Protein 6.8 g/dL (6.3-8.2); Triglycerides 97 mg/dL (35-150)
[2022-02-18 17:35] LABS: Tissue Transglutaminase IgA <2 U/mL (0-3); Tissue Transglutaminase IgG 3 U/mL (0-5)
== END ==
PROVIDERS: PCP Internal Medicine; Referring Provider Internal Medicine; Visit Provider Internal Medicine
DX: F32.9 Major depressive disorder, single episode, unspecified (principal); F90.9 Attention-deficit hyperactivity disorder, unspecified type; M79.2 Neuralgia and neuritis, unspecified; R10.9 Unspecified abdominal pain; R53.82 Chronic fatigue, unspecified
CPT/HCPCS: 36415; 80053; 80061; 83516; 84443; 85025; 86140

== ENCOUNTER → 2024-07-28 15:28 | Outpatient (CLI) | payer OTHER, SELFPAY ==
[2024-07-28 15:55] LABS: Add Manual Diff / Slide Review NO; Basophils Absolute Auto 0 /uL (0-100); Basophils Percent Auto 0.5 % (0-2); Eosinophils Absolute Auto 100 /uL (0-450); Hemoglobin 14.9 g/dL (12.0-16.0); Lymphocytes Absolute Auto 2300 /uL (1100-4500); Lymphocytes Percent Auto 27.1 % (25-40); Mean Corpuscular HGB Conc 33.9 % (30-36); Mean Corpuscular Hemoglobin 30.8 PG (26-34); Mean Corpuscular Volume 90.8 fL (80-100); Monocytes Absolute Auto 400 /uL (0-900); Monocytes Percent Auto 4.9 % (3-14); Neutrophils Absolute Auto 5600 /uL (1500-7000); Neutrophils Percent Auto 66.5 % (50-75); Platelet Count 297 X10^3/uL (150-400); Red Blood Cell Count 4.84 X10^6/uL (4.0-5.2); Red Cell Distribution Width 12.6 % (11.6-14.8); White Blood Cell Count 8.4 X10^3/uL (4.5-11.0)
[2024-07-28 16:08] LABS: Alanine Aminotransferase 28 IU/L (<35); Albumin 4.7 g/dL (3.5-5.0); Albumin Globulin Ratio 1.5 (1.0-2.8); Alkaline Phosphatase 75 U/L (38-126); Aspartate Aminotransferase 28 IU/L (14-36); Bilirubin Total 0.3 mg/dL (0.2-1.3); Blood Urea Nitrogen 7 mg/dL (7-17); Calcium 9.4 mg/dL (8.4-10.2); Carbon Dioxide 27 mmol/L (22-32); Chloride 105 mmol/L (98-107); Estimated Glomerular Filt Rate > 60 mL/min (>60); Globulin 3.1 g/dL (1.7-4.1); Glucose 102 mg/dL (70-100); HEMOLYSIS < 15 (0-50); Potassium 4.1 mmol/L (3.4-5.1); Sodium 139 mmol/L (137-145); Total Protein 7.8 g/dL (6.3-8.2)
[2024-07-28 16:38] LABS: TSH w/ Reflex to FT4 2.14 uIU/mL (0.47-4.68)
== END ==
PROVIDERS: PCP Internal Medicine; Referring Provider Internal Medicine; Visit Provider Internal Medicine
DX: R53.82 Chronic fatigue, unspecified (principal); F90.9 Attention-deficit hyperactivity disorder, unspecified type; D64.9 Anemia, unspecified; Z79.899 Other long term (current) drug therapy
CPT/HCPCS: 36415; 80053; 84443; 85025